=== PATIENT | male | born 1945 | race Caucasian/White ===

== ENCOUNTER 2016-04-08 15:26 | Emergency (ER) | payer OTHER ==
[2016-04-08 20:26] LABS: BASOPHILS 1.8 % (0.0-2.0); EOSINOPHILS 1.8 % (0-7); HEMATOCRIT 46.1 % (42.0-54.0); HEMOGLOBIN 15.5 g/dL (13.5-17.5); IMMATURE GRANULOCYTES 0.4 % (0-5); LYMPHOCYTES 22.6 % (15-50); MCH 29.8 pg (26.0-34.0); MCHC 33.6 g/dL (31.0-37.0); MCV 88.5 fL (80.0-100.0); MEAN PLATELET VOLUME 8.8 fL (7.4-10.4); MONOCYTES 9.3 % (2-11); NEUTROPHILS 64.1 % (40-80); PLATELET COUNT 255 10x3/uL (130-400); RBC 5.21 10x6/uL (4.20-6.10); RDW 15.6 % (11.5-14.5); WBC 10.8 10x3/uL (4.8-10.8)
[2016-04-08 21:01] LABS: ALBUMIN 3.8 g/dL (3.4-5.0); ALKALINE PHOSPHATASE 41 U/L (46-116); ALT (SGPT) 29 U/L (10-68); BILIRUBIN - TOTAL 0.42 mg/dL (0.2-1.3); CALC OSMOLALITY 282 mosm/kg (275-300); CALCIUM 9.1 mg/dL (8.5-10.1); CARBON DIOXIDE 28.9 mmol/L (21.0-32.0); CHLORIDE - SERUM 103 mmol/L (98-107); GLUCOSE 129 mg/dL (74-106); POTASSIUM - SERUM 4.1 mmol/L (3.5-5.1); PROTEIN - SERUM 7.2 g/dL (6.4-8.2); SODIUM 140 mmol/L (136-145); UREA NITROGEN 17 mg/dL (7-18); eGFR NON AFRICAN AMERICAN 78 mL/min (90-120)
[2016-04-08 21:07] LABS: PRO BNP 236 pg/mL (0-125)
== END 2016-04-08 23:59 | disposition home or self-care (01) ==
LOC: D.ER 15:26
PROVIDERS: Physician Assistant Medical
DX: R06.00 Dyspnea, unspecified (principal); J44.1 Chronic obstructive pulmonary disease with (acute) exacerbation; F48.2 Pseudobulbar affect; E11.9 Type 2 diabetes mellitus without complications; N40.0 Benign prostatic hyperplasia without lower urinary tract symptoms

== ENCOUNTER 2019-06-25 15:16 | Inpatient (IN) | payer MEDICARE ==
[~2019-06-25] VITALS: Ht 165.1 cm; Wt 82.6 kg
[2019-06-25] MEDS ORDERED: BAYER CHEWABLE81 MG PO (15:31)
[2019-06-25] MEDS ORDERED: LIPITOR40 MG PO (15:31)
[2019-06-25] MEDS ORDERED: IODOSORB40 GM (15:32)
[2019-06-25] MEDS ORDERED: BUMETANIDE0.5 MG (15:32)
[2019-06-25] MEDS ORDERED: GLUCOTROL XL 1010 MG (15:33)
[2019-06-25] MEDS ORDERED: GABAPENTIN300 MG (15:33)
[2019-06-25] MEDS ORDERED: RANITIDINE HCL150 M1 (15:34)
[2019-06-25] MEDS ORDERED: LISINOPRIL20 MG (15:34)
[2019-06-25] MEDS ORDERED: TOPROL XL50 MG (15:34)
[2019-06-25] MEDS ORDERED: BASAGLAR K100 UNIT/1 (15:34)
[2019-06-25] MEDS ORDERED: FLOMAX0.4 MG PO (15:35)
[2019-06-25 16:46] LABS: HEMOGLOBIN 12.2 g/dL (13.5-17.5); MCH 29.4 pg (26.0-34.0); MCV 89.2 fL (80.0-100.0); MEAN PLATELET VOLUME 7.7 fL (7.4-10.4); PLATELET COUNT 454 10x3/uL (130-400); RBC 4.15 10x6/uL (4.20-6.10); RDW 14.5 % (11.5-14.5); WBC 19.2 10x3/uL (4.8-10.8)
[2019-06-25 16:49] LABS: CALC OSMOLALITY 273 mosm/kg (275-300); CALCIUM 9.1 mg/dL (8.5-10.1); CARBON DIOXIDE 27.6 mmol/L (21.0-32.0); CHLORIDE - SERUM 97 mmol/L (98-107); CREATININE - SERUM 0.9 mg/dL (0.6-1.3); POTASSIUM - SERUM 3.7 mmol/L (3.5-5.1); SODIUM 135 mmol/L (136-145); UREA NITROGEN 18 mg/dL (7-18); eGFR NON AFRICAN AMERICAN 88 mL/min (90-120)
[2019-06-25 16:50] LABS: GLUCOSE 136 mg/dL (74-106)
[2019-06-25 17:06] LABS: ALBUMIN 1.9 g/dL (3.4-5.0); ALKALINE PHOSPHATASE 99 U/L (30-120); ALT (SGPT) 54 U/L (10-68); BILIRUBIN - TOTAL 0.45 mg/dL (0.2-1.3); CKMB 0.9 U/L (0.0-3.6); CREATINE KINASE 62 UL (21-232); MAGNESIUM - SERUM 2.3 mg/dL (1.8-2.4); PRO BNP 710 pg/mL (0-125); PROTEIN - SERUM 8.1 g/dL (6.4-8.2); TROPONIN-I < 0.017 ng/mL (0.000-0.060)
[2019-06-25 17:10] LABS: EOSINOPHILS 1 % (0-7); LYMPHOCYTES 5 % (15-50); MONOCYTES 5 % (2-11); NEUTROPHILS 87 % (40-80); PLATELET ESTIMATE NORMAL
--- NOTE | 2019-06-25 19:07 | NUR ---
ANCEF 1 GRAM COMPLETE.
--- NOTE | 2019-06-25 20:15 | NUR ---
ADMITTED TO FLOOR. BILATERAL LOWER EXTREMETIES, MAINLY FEET HAVE ODOROUS NECROTIC WOUNDS. PATIENT STATES "A WHEEL CHAIR RAN OVER IT." SALINE LOCKED IV TO THE RIGHT FOREARM. PATIENT DENIES PAIN BUT STATES THAT HIS FEET HURT WHEN TOUCHED. CURRENTLY BANDAGED AT THIS TIME. NO WOUND CARE ORDERS. DENIES FURTHER NEEDS. CPOC.
[2019-06-25 20:24] VITALS: BP 138/45
--- NOTE | 2019-06-26 00:30 | NUR ---
ORDERS FULFILLED. MICROWAVE RADIO TECHNICIAN ON FLOOR AND STATES TO DC SCD'S DUE TO BILATERAL FOOT WOUNDS. INFORMED PATIENT THAT THIS NURSE IS NEEDING A URINE SAMPLE. PATIENT IS INCONTINENT OF BOWEL AND BLADDER. URINAL AND URINALYSIS KIT IN ROOM. CPOC.
[2019-06-26 00:56] VITALS: BP 151/79
[2019-06-26 03:00] VITALS: BP 96/74
[2019-06-26 04:00] VITALS: BMI 30.3
--- NOTE | 2019-06-26 04:52 | NUR ---
PATIENT CALLED DESK. WENT TO ROOM TO CHECK ON PATIENT. PATIENT CONFUSED. STATES "WHY AM I HERE?" EXPLAINED TO THAT HE SPOKE TO DOCTOR AND CERTIFIED FRAUD EXAMINER LAST NIGHT. PATIENT STATES "THIS IS BULL SHIT!" EXPLAINED TO PATIENT THAT HE NEEDS MEDICAL CARE AT THIS TIME. PATIENT ASKS FOR PAIN MEDICINE.
--- NOTE | 2019-06-26 04:58 | NUR ---
ADMINISTERED MORPHINE 2 MG PER ORDER
[2019-06-26 05:12] LABS: BASOPHILS 0.4 % (0-2); EOSINOPHILS 0.7 % (0-7); HEMATOCRIT 36.3 % (42.0-54.0); HEMOGLOBIN 11.7 g/dL (13.5-17.5); LYMPHOCYTES 8.6 % (15-50); MCH 29.3 pg (26.0-34.0); MCHC 32.2 g/dL (31.0-37.0); MCV 90.8 fL (80.0-100.0); MEAN PLATELET VOLUME 8.2 fL (7.4-10.4); MONOCYTES 9.1 % (2-11); NEUTROPHILS 80.2 % (40-80); PLATELET COUNT 549 10x3/uL (130-400); RDW 14.7 % (11.5-14.5); WBC 22.3 10x3/uL (4.8-10.8)
[2019-06-26 05:25] LABS: APTT 40.5 SECONDS (22.8-39.4); INR 1.22 (0.85-1.17); PROTIME 15.3 SECONDS (11.6-15.0)
[2019-06-26 05:38] LABS: CALC OSMOLALITY 274 mosm/kg (275-300); CALCIUM 9.4 mg/dL (8.5-10.1); CARBON DIOXIDE 27.8 mmol/L (21.0-32.0); CHLORIDE - SERUM 96 mmol/L (98-107); GLUCOSE 158 mg/dL (74-106); MAGNESIUM - SERUM 2.3 mg/dL (1.8-2.4); PHOSPHOROUS 3.9 mg/dL (2.5-4.9); POTASSIUM - SERUM 3.9 mmol/L (3.5-5.1); SODIUM 135 mmol/L (136-145); UREA NITROGEN 17 mg/dL (7-18); eGFR NON AFRICAN AMERICAN 78 mL/min (90-120)
--- NOTE | 2019-06-26 06:20 | NUR ---
I have reviewed this patient and I concur with the Shift Assessment completed by the Licensed Practical Nurse today this shift.
[2019-06-26 08:00] VITALS: BP 151/55
[2019-06-26 08:45] VITALS: BP 144/73
--- NOTE | 2019-06-26 08:45 | NUR ---
HE IS HARD TO UNDERSTAND BECAUSE OF AN OLD STROKE. HIS O2 SAT IS UP AND DOWN 88%-94%, I PLACED HIM ON 2 LITERS NC 96%. HIS 2 DAUGHTERS HAVE CALLED THIS MORNING. ONE DAUGHTER STATES HE IS SCHEDULED FOR A PRECEDURE WITH DR. MICHELLE FRIDAY. I DID TELL THE BOOKMOBILE DRIVER ABOUT THIS. BILATER DRESSING TO FEET, BLACK AREAS TO BOTH FEET.
[2019-06-26 09:24] VITALS: Ht 165.1 cm; Wt 82.6 kg
[2019-06-26 12:00] VITALS: BP 149/49
[2019-06-26 16:00] VITALS: BP 133/70
--- NOTE | 2019-06-26 17:21 | NUR ---
2 NEW IV STARTED TODAY 20G IN LEFT ARM FOR CTA. 22 G IN RIGHT ARM. HE HAS PULLED TWO IV'S OUT TODAY. I HAVE SPOKE WITH THIS DAUGHTER, KOLBY LIMA, AND THE PATIENT, HE SIGNED AND AGREES WITH SURGERY TOMORROW.
--- NOTE | 2019-06-26 19:15 | NUR ---
PATIENT ALERT WHEN ENTERING THE ROOM. PATIENT TOOK OFF TELE STICKERS AND MONITOR. REAPPLIED AND EXPLAINED TO PATIENT THAT IT IS IMPORTANT TO KEEP TELE ON TO MONITOR HEART. PATIENT STATES "ALRIGHT". PATIENT STATES NAME AND BUT IT IS HARD TO UNDERSTAND. PATIENT GROWS IRRITATED EASILY WHEN ASKED TO REPEAT THINGS. ASKED PATIENT ABOUT UPCOMING SURGERY TOMORROW, PATIENT STATES "YES" HE IS AWARE AND DENIES QUESTIONS. EDUCATED ON NPO STATUS AT [facility] AND [facility] FOR SURGERY TOMORROW. PATIENT STATES "OKAY". PATIENT FAMILY MEMBER CALLED ON PHONE. PATIENT SPEAKING WITH FAMILY MEMBER WHEN CONTINUING ASSESSMENT. 22G IV THAT IS INFUSING NS @ KVO RATE. 20G IN THE RIGHT FOREARM THAT IS SALINE LOCKED. BED ALARM ON. PATIENT REFUSES TO KEEP CLOTHING OR SHEETS ON. CALL LIGHT CLOSE TO PATIENT. CPOC.
--- NOTE | 2019-06-26 21:29 | NUR ---
NAIN OZUNA ON FLOOR. STATES TO PREOP PATIENT AT NORMAL "MORNING MEDS" TIME. THIS NURSE STATED, "THAT'S ABOUT ." SULMA STATED THAT WAS FINE AND TO GO AHEAD AND DO IT AROUND THAT TIME. BRE HICKS, CHARGE NURSE PRESENT FOR CONVERSATION.
[2019-06-26 21:40] LABS: BILIRUBIN NEGATIVE (NEGATIVE); GLUCOSE NEGATIVE (NEGATIVE); KETONE NEGATIVE (NEGATIVE); NITRITE NEGATIVE (NEGATIVE); SPECIFIC GRAVITY 1.015 (1.005-1.020); UROBILINOGEN NORMAL (NORMAL)
[2019-06-27] VITALS (11 sets, daily range): BP systolic 147–157; BP diastolic 49–62
--- NOTE | 2019-06-27 03:54 | NUR ---
EKG PERFORMED. SPENT SEVERAL MINUTES WITH PATIENT COACHING TO TRY TO BE STILL BUT PATIENT HAS MUSCLE SEVERE MUSCLE SPASMS.
--- NOTE | 2019-06-27 04:00 | NUR ---
HIBBA CLEANSE COMPLETED. URINE OBTAINED AND SENT TO LAB EARLIER IN SHIFT FOR REFLEX AND CULTURES. EKG OBTAINED, SEE PRIOR NOTE.
--- NOTE | 2019-06-27 05:20 | NUR ---
PATIENT CONTINUALLY TAKING OFF GOWN. WOULD NOT ALLOW NURSE TO TAKE OFF BANDAGES ON BILATERAL LOWER EXTREMETIES.
--- NOTE | 2019-06-27 06:23 | NUR ---
PHARMACY NOT HERE TO VERIFY ORDERS. WAITING FOR MEDICATIONS TO BE VERIFIED SO PATIENT CAN BE PREOPED.
--- NOTE | 2019-06-27 06:33 | NUR ---
PATIENT AND DAUGHTER CALLED TO ASK IF PATIENT HAS CELL PHONE AND CAN FACETIME. PATIENT HAS BEEN SLEEPING EVERY TIME FAMILY MEMBERS HAVE CALLED. THIS NURSE WOULD GO ASK PATIENT IF HE WOULD LIKE TO TALK TO FAMILY AND HE WOULD ACKNOWLEDGE THIS NURSE AND THEN WAVE HIS HAND OFF AND CLOSE HIS EYES AND GO BACK TO SLEEP. SPOKE WITH FAMILY THAT PATIENT IS STILL SLEEPING AT THIS TIME.
[2019-06-27 06:42] LABS: HEMATOCRIT 35.2 % (42.0-54.0); HEMOGLOBIN 11.4 g/dL (13.5-17.5); MCH 29.3 pg (26.0-34.0); MCHC 32.4 g/dL (31.0-37.0); MCV 90.5 fL (80.0-100.0); MEAN PLATELET VOLUME 8.3 fL (7.4-10.4); PLATELET COUNT 511 10x3/uL (130-400); RBC 3.89 10x6/uL (4.20-6.10); RDW 14.7 % (11.5-14.5); WBC 22.9 10x3/uL (4.8-10.8)
[2019-06-27 07:06] LABS: CALC OSMOLALITY 280 mosm/kg (275-300); CALCIUM 9.2 mg/dL (8.5-10.1); CARBON DIOXIDE 25.7 mmol/L (21.0-32.0); CHLORIDE - SERUM 98 mmol/L (98-107); GLUCOSE 203 mg/dL (74-106); MAGNESIUM - SERUM 2.3 mg/dL (1.8-2.4); PHOSPHOROUS 3.7 mg/dL (2.5-4.9); POTASSIUM - SERUM 3.8 mmol/L (3.5-5.1); SODIUM 136 mmol/L (136-145); UREA NITROGEN 22 mg/dL (7-18); eGFR NON AFRICAN AMERICAN 78 mL/min (90-120)
[2019-06-27 07:13] LABS: LYMPHOCYTES 12 % (15-50); MONOCYTES 1 % (2-11); NEUTROPHILS 87 % (40-80); PLATELET ESTIMATE INCREASED
--- NOTE | 2019-06-27 08:31 | NUR ---
THE PM SHIFT PRE MEDICATED HIM, SHE IS SLEEPY THIS MORNING. AROUSES TO VOICE. HE IS WEARING 2 L NC OXYGEN.
--- NOTE | 2019-06-27 09:09 | NUR ---
GONE TO OR.
--- NOTE | 2019-06-27 13:08 | NUR ---
BACK FROM SURGERY, MALVIN AKA WITH WOUND VAC TO BOTH STUMPS IN PLACE. HE IS SLEEPY, BUT AROUSES TO MY VOICE.
--- NOTE | 2019-06-27 19:22 | NUR ---
PATIENT RESTING IN BED WITH EYES CLOSED AND NO S/S OF DISTRESS. RESP EVEN AND UNLABORED. BED IN LOWEST POSITION AND CALL LIGHT WITHIN REACH. WILL CONTINUE TO MONITOR.
[2019-06-28 01:01] VITALS: BP 140/63
--- NOTE | 2019-06-28 01:10 | NUR ---
PATIENT VOIDED 350 ML
[2019-06-28 05:16] VITALS: BP 146/53
[2019-06-28 05:21] LABS: BASOPHILS 0.4 % (0-2); EOSINOPHILS 1.1 % (0-7); HEMATOCRIT 34.3 % (42.0-54.0); IMMATURE GRANULOCYTES 1.1 % (0-5); LYMPHOCYTES 8.4 % (15-50); MCH 29.2 pg (26.0-34.0); MCHC 32.1 g/dL (31.0-37.0); MEAN PLATELET VOLUME 8.4 fL (7.4-10.4); MONOCYTES 9.7 % (2-11); NEUTROPHILS 79.3 % (40-80); PLATELET COUNT 468 10x3/uL (130-400); RBC 3.77 10x6/uL (4.20-6.10)
[2019-06-28 05:22] LABS: WBC 16.1 10x3/uL (4.8-10.8)
[2019-06-28 05:26] LABS: MAGNESIUM - SERUM 2.4 mg/dL (1.8-2.4); PHOSPHOROUS 3.3 mg/dL (2.5-4.9)
[2019-06-28 07:19] VITALS: BP 156/63
--- NOTE | 2019-06-28 07:50 | OP ---
PATIENT NAME: CHIQUI CHEN MEDICAL RECORD: [id number] :45 LOCATION:D.MS [id number] ADMISSION DATE:06/25/19 SURGEON: PANKAJ FORREST DO DATE OF OPERATION: 06/27/2019 PROCEDURE PERFORMED: Bilateral lower extremity above-knee amputations. PREOPERATIVE DIAGNOSIS: Wet gangrene of bilateral lower extremities. POSTOPERATIVE DIAGNOSIS: Wet gangrene of bilateral lower extremities. INDICATIONS: Mr. Chen is a 74-year-old diabetic male who also smokes, presented to the hospital on the . I was consulted yesterday on the for evaluation of his lower extremities, had been getting home health and noticed some open wounds on his lower extremities. When I got to see him, both of his feet were completely necrotic. On his right side, he had exposed tibia shaft through an wound that was necrotic around that. On the left, he had a large wound, probably 4 x 5 cm on the posterior and lateral aspect with an ulcer to the bone there as well and no pulses. He had a CTA, which showed very limited blood flow to the lower extremity in the popliteal artery. We did have some vessel runoff, but due to the fact he had exposed bone on both of his lower extremities and he had a white count as well as 22,000, almost 23,000 this morning, he had infection, wet gangrene in the both lower extremities. I talked to him and his family, informed that we need to do above-knee amputations. We tried to do below knee once I got in there, but we will likely do above-knee and that is what we did. I informed him that would be the best option, we are trying to save his life that he could turn septic really quickly due to the infections and that the infection was in the bone that we will need to take all of his lower extremity except for we just did the above-knee amputation. The patient was informed of the risks including continued infection, bleeding, damage to nerves and vessels, continued pain, phantom pain, blood loss, blood clots, and even and he signed the consent. SURGEON: Pankaj Forrest DO DESCRIPTION OF PROCEDURE: The patient was taken to the operative suite, laid in supine position, given general anesthetic and intubated. He was given vancomycin and Zosyn on the floor and he was given 2 grams of Ancef prior to starting the surgery. The exposed bones were covered up at that point with a sterile stockinette and then the right lower extremity was prepped in a sterile fashion first. A timeout was performed, everyone was in agreement of the correct side, site, patient and procedure. We then began by inflating the tourniquet and once tourniquet was inflated, did a fishmouth incision. Careful dissection was made down through all the compartments and exposing the femur. These nerves were cut with traction on them and then the femur was cut. I then encountered the large vessels and tied them off the artery and vein and tied them off with 0 silk ties, using 2 ties on wound and coagulating the ends of them with the Aquamantys. Any bleeding was coagulated with Aquamantys at that time. I then put drill holes in the amputated site. The leg was removed on the posterior femur and using a Bryn-Charlie stitch, I stitched the quad tendon down covering the stump. I then debulked any of the soft tissue in order to close. I was assisted with closing by Karan Jaimes, certified surgical assistant professor of dietetics using a #1 Vicryl and closed the fascia, bringing the posterior flap up nicely and then 2-0 Vicryl in inverted interrupted fashion on the skin and then 0 Prolene in a horizontal mattress fashion on the skin. We then put a Prevena OPERATIVE REPORT [id number] CHIQUI CHEN plus VAC on the right. The tourniquet was let down prior to this at 24 minutes and was up at 350 mmHg. Any bleeding was coagulated prior to closing. We then proceeded with the left and it was prepped and draped in sterile fashion similar to the right one and the same process was repeated. The skin was cut with a knife and a fishmouth incision. Careful dissection was made down through each compartment and coagulated any bleeders. A tourniquet was inflated prior to this to 350 mmHg. I then cut the femur and tied off the vessels and did traction on each of the nerves and cut them, so they retract out proximally. The vessels were tied and then coagulated with the Aquamantys and drill holes were put in the femur and the quad was brought down over that to pad the stump and then debrided any soft tissue and brought the flap up the fascia matching it up with #1 Vicryl in a kmvrlr-fj-sowid and simple fashion. This was assisted by Karan Jaimes, certified surgical assistant professor of dietetics as well and closed the skin with 2-0 Vicryl in inverted interrupted fashion, 0 Prolene in horizontal mattress fashion, and then Prevena plus VAC placed on the stump site. The stump sites were holding suction very well. We then awakened and taken to recovery in stable condition. BLOOD LOSS: Approximately 100 mL. COMPLICATIONS: None. TRANSINT:[id number] Voice Confirmation ID: [id number] DOCUMENT ID: [id number] PANKAJ FORREST DO at 0750 CC: [id number] DICTATION DATE: 06/27/19 1228 OCCUPATIONAL PSYCHOLOGIST: 06/27/19 1530 ADM IN [place] [id number] [place] [address]
--- NOTE | 2019-06-28 08:00 | NUR ---
HE IS ALERT, CALM, EATING BREAKFAST. HE ONLY HAS PAIN WHEN HE MOVES. PRN FOR PAIN GIVEN. BILATERAL WOUND VAC DRESSING ARE INTACT, MACHINE IS WORKING. FAMILY HAS CALLED ME, WELL THE PATIENT WHEN I WAS IN HIS ROOM.
--- NOTE | 2019-06-28 09:57 | EC ---
PATIENT:CHIQUI CHEN DATE OF SERVICE: 06/25/19 SEX: M MEDICAL RECORD: [id number] DATE OF : 45 LOCATION:D.[facility] AGE OF PATIENT: 74 ADMISSION DATE: 06/25/19 REFERRING PHYSICIAN: INTERPRETING PHYSICIAN: NICOLLE GOMEZ MD ECHOCARDIOGRAM REPORT ECHO CHARGES 4 ECHO COMPLETE Date: 06/26/19 CLINICAL DIAGNOSIS: ELEVATED PRO-BNP/SOB ECHOCARDIOGRAPHIC MEASUREMENTS (adult normal given) AC root (d.<3.7cm) 3.0 cm LV Septum d (<1.2 cm> 1.7 cm Valve Excursion 0.9 cm LV Septum (systole) 2.3 cm Left Atria (s.<4.0cm> 4.2 cm LVPW d(<1.2cm) 1.6 cm RV (d.<2.3cm) 3.0 cm LVPW (sytole) 2.6 cm LV diastole(<5.6CM) 3.9 cm MV E-F(>70mm/sec) cm LV systole 1.4 cm LVOT Diameter 2.0 cm MV exc.(>10mm) cm Est.ejection fraction (50-75%) % DOPPLER: LVIT cm/sec A 171 cm/sec E 104 cm/sec LA cm/sec RVSP 27.0 mmHg LVOT 168 cm/sec AOP1/2T m/s Asc. Ao 236 cm/sec RVOT 102 cm/sec RA cm/sec PA 166 cm/sec AV Gradient Peak 22.3 mmHg AV Mean 11.4 mmHg AV Area 1.9 cm MV Gradient Peak 14.0 mmHg MV Mean 4.1 mmHg MV Area cm COMMENTS: Braddisher: Blanka GROSSOE Hvac R Tech: 3 Dr. Vallecillo TAPE# PACS Pericardial Effusion N DATE OF SERVICE: Adequate 2D, color flow imaging, spectral Doppler, and M-Mode. LVH is present. LV internal dimensions are normal. Wall motion is normal. EF is greater than or equal to 55%. Aortic valve is sclerotic without significant stenosis by Doppler interrogation. Left atrium is mildly dilated at 4.2 cm. Mitral valve shows no prolapse. Trace MR. Right-sided chambers are grossly normal. Trace TR. ECHOCARDIOGRAM REPORT [id number] CHIQUI CHEN TRANSINT:[id number] Voice Confirmation ID: [id number] DOCUMENT ID: [id number] NICOLLE GOMEZ MD at 0957 CC: [id number] DICTATION DATE: 06/27/19954 FLEET SALESPERSON: 06/27/19 1310 ADM IN [place] [id number] [place] [id number]
--- NOTE | 2019-06-28 12:14 | NUR ---
Rehab Prescreening Consult received and the chart has been reviewed. He is POD# 1 Bilateral AKA. He is a good rehab candidate, but has not started therapy yet. Rehab will follow his progress with therapy and plan to admit when appropriate. Kristin Smith RN Clinical Liaison, Rehab
[2019-06-28 12:30] VITALS: BP 152/62
--- NOTE | 2019-06-28 16:41 | NUR ---
IN THE ROOM TO CHECK HIS BLOOD SUGAR AND FOUND THAT HE HAS PULLED THE IV OUT OF HIS RIGHT ARM.
[2019-06-28 17:03] VITALS: BP 139/42
--- NOTE | 2019-06-28 19:45 | NUR ---
PT SITTING UP IN BED WITHOUT DISTRESS. ORIENTED TO SELF AND PLACE. BILAT AKA DRESSING AND WOUND VAC CDI. IV LEFT FA INFUSING 1/2NS @ 50. O2 2L/NC. PT PULLED TELE MONITOR OFF. PLACED BACK ON PT AND EXPLAINED WHY HE HAD TO WEAR IT, VERBALIZED UNDERSTANDING. PT STATES PAIN 4/10 AT THIS TIME. SPOKE WITH DAUGHTER OVER PHONE AND UPDATE GIVEN. WILL CTM
[2019-06-28 20:00] VITALS: BP 132/48
--- NOTE | 2019-06-28 21:00 | NUR ---
FSBS 193, 2 UNITS INSULIN GIVEN PER SS. PT TOOK MEDS WITHOUT DIFFICULTY. PT VOIDED IN BED WHILE ATTEMPTING TO USE URINAL, LINENS CHANGED AT THIS TIME. PT STATES PAIN IN LEGS 5/10, OXY GIVEN ORDERED. STATES THEY HURT WHEN HE MOVES. DENIES OTHER NEEDS. CL IN REACH, WILL CTM
--- NOTE | 2019-06-28 23:40 | NUR ---
IV LEFT FA INFILTRATED. REMOVED WITH CATHETER INTACT. RESITED 20G IV RIGHT HAND X1 ATTEMPT
[2019-06-29] VITALS: BP 110/56
[2019-06-29 04:00] VITALS: BP 140/80
[2019-06-29 04:30] LABS: BASOPHILS 0.2 % (0-2); EOSINOPHILS 1.6 % (0-7); HEMATOCRIT 31.8 % (42.0-54.0); HEMOGLOBIN 9.9 g/dL (13.5-17.5); IMMATURE GRANULOCYTES 2.2 % (0-5); LYMPHOCYTES 12.3 % (15-50); MCH 28.4 pg (26.0-34.0); MCHC 31.1 g/dL (31.0-37.0); MCV 91.1 fL (80.0-100.0); MEAN PLATELET VOLUME 8.1 fL (7.4-10.4); NEUTROPHILS 72.7 % (40-80); PLATELET COUNT 503 10x3/uL (130-400); RBC 3.49 10x6/uL (4.20-6.10); RDW 14.8 % (11.5-14.5); WBC 14.7 10x3/uL (4.8-10.8)
[2019-06-29 04:46] LABS: CALC OSMOLALITY 270 mosm/kg (275-300); CALCIUM 8.1 mg/dL (8.5-10.1); CARBON DIOXIDE 26.2 mmol/L (21.0-32.0); CHLORIDE - SERUM 97 mmol/L (98-107); CREATININE - SERUM 0.8 mg/dL (0.6-1.3); GLUCOSE 194 mg/dL (74-106); MAGNESIUM - SERUM 2.3 mg/dL (1.8-2.4); PHOSPHOROUS 2.6 mg/dL (2.5-4.9); POTASSIUM - SERUM 3.5 mmol/L (3.5-5.1); SODIUM 133 mmol/L (136-145); UREA NITROGEN 12 mg/dL (7-18); eGFR NON AFRICAN AMERICAN > 90 mL/min (90-120)
[2019-06-29 07:54] VITALS: BP 162/91
--- NOTE | 2019-06-29 08:14 | NUR ---
AWAKE AND ALERT. ORIENTED X3. LUNGS ARE CLEAR BILATERALLY, NO COUGH NOTED. SKIN IS INTACT WITHOUT REDNESS EXCEPT INCISIONS TO BILATERAL AKA WHICH ARE CLEAN AND DRY WITH WOUND VAC IN PLACE TO BOTH. IV TO RIGHT HAND IS PATENT WITHOUT REDNESS AT INSERTION SITE. INCONTINENT OF URINE. SKIN CARE AND LINEN CHANGE PER STAFF. REPORTS PAIN WITH MOVEMENT BUT CALMS DOWN WHEN STILL. WILL MONITOR.
--- NOTE | 2019-06-29 10:00 | NUR ---
ATE MOST OF BREAKFAST WITH SET UP ASSIST ONLY. TOOK AM MEDS WITHOUT DIFFICULTY. CONFUSED AT THIS TIME, PULLED IV OUT WITH CATHETER INTACT. CONTINUES TO PULL TELEMETRY OFF. IV RESITED TO RIGHT FOREARM AFTER ONE ATTEMPT WITH 20G. TOLERATED WELL.
--- NOTE | 2019-06-29 11:00 | NUR ---
RESTING QUIETLY IN BED. CONTINUES CONFUSED BUT OK WITH STAYING IN BED AT THIS TIME. WILL MONITOR.
--- NOTE | 2019-06-29 12:00 | NUR ---
FSBS 246. GIVEN 4 UNITS HUMALOG SUBQ PER SS. TOLERATED WELL. CONTINUES CONFUSED BUT ANSWERS SOME QUESTIONS APPROPRIATELY. WILL CONTINUE TO MONITOR.
[2019-06-29 12:04] VITALS: BP 150/53
--- NOTE | 2019-06-29 14:53 | MORECARE ---
CASE MANAGEMENT DISCHARGE SUMMARY PATIENT: CHIQUI CHEN UNIT: [id number] ADM DATE: 06/25/19 AGE: 74 : 45 SEX: M ROOM/BED: D.2215 AUTHOR: MARICARMEN CH PHYSICIAN: REFERRING PHYSICIAN: MENG MANDUJANO MD DATE OF SERVICE: 06/29/19 Discharge Plan Patient Name: [facility]IQUI CHEN [facility] [facility] 1945 Planned Disposition: Anticipated Discharge Date: Discharge Date: Expected LOS: Initial Reviewer: [email or web address] Initial Review Date: 06/25/2019 Generated: 06/29/19 3:52 pm Comments DCP- Discharge Planning Updated by [email or web address]: Ирина Carlisle on 06/29/19 1:[address] [facility] with [facility] called to check in with patient. She said that if he needed or wanted the [place] inpatient rehab that I would need to touch base with the KNOWLEDGE MANAGEMENT ADVISOR over that department. Her name is Beverley Steward & her number is [phone]. Patient Name: CHIQUI CHEN Page 08703 at 1453 All edits/amendments must be made on the electronic document DICTATION DATE: 06/29/191451 SYSTEMATIC THEOLOGY PROFESSOR: IRA 06/29/191451 RPT#: [id number] DC DATE: STATUS: ADM IN [facility] [address] [place] [address] END OF REPORT
--- NOTE | 2019-06-29 15:35 | NUR ---
OT NOTE: PT EXHIBITED LESS DIFFICULTY WITH SITTING UP RATHING THAN SIDE ROLLING. PT REQUIRED MOD A WITH SIDE ROLLING. PT REQUIRED MIN A WITH SITTING UP. PT COMPLETED UE AROM WITH BED MOB TASKS. [phone] THANK YOU,SEYMOUR TEIXEIRA
--- NOTE | 2019-06-29 15:45 | NUR ---
OT NOTE: AMEND TO PREVIOUS NOTE DATED 06/29/2019. SESSION TIME: 105-129 THANK YOU,SEYMOUR TEIXEIRA
--- NOTE | 2019-06-29 16:14 | MORECARE ---
CASE MANAGEMENT DISCHARGE SUMMARY PATIENT: CHIQUI CHEN UNIT: [id number] ADM DATE: 06/25/19 AGE: 74 : 45 SEX: M ROOM/BED: D.2215 AUTHOR: MARICARMEN CH PHYSICIAN: REFERRING PHYSICIAN: MENG MANDUJANO MD DATE OF SERVICE: 06/29/19 Discharge Plan Patient Name: CHIQUI CHEN [facility] [facility] 1945 Planned Disposition: Inpatient Rehab Facility Anticipated Discharge Date: 06/30/19 Discharge Date: Expected LOS: 5 Initial Reviewer: [email or web address] Initial Review Date: 06/29/2019 Generated: 06/29/19 5:14 pm Comments DCP- Discharge Planning Updated by [email or web address]: Ирина Carlisle on 06/29/19 1:[address] [facility] Jeffrey with the [facility] called to check in with patient. She said that if he needed or wanted the [place] inpatient rehab that I would need to touch base with the CARD SETTER over that department. Her name is Beverley Steward & her number is [phone]. DCPIA - Discharge Planning Initial Assessment Updated by [email or web address]: Zenaida Lozano on 06/29/19 4:13 pm * Is the patient Alert and Oriented? No * How many steps to enter\exit or inside your home? Ramp * PCP [facility] nurse Caroline * [facility] on [address] * Preadmission Environment Home with Family * ADLs Partial Dependent * Partial ADLs (Assistance needed) Ambulation Bathing Dressing Toileting Transfers * Equipment Elevated [place] Seat Glucometer [facility] Bed Power Chair or Electric Scooter Shower Chair Mikeye Last DP export: 06/29/19 1:53 p Patient Name: CHIQUI CHEN Page 14785 at 1614 All edits/amendments must be made on the electronic document DICTATION DATE: 06/29/191613 PERIANESTHESIA MANAGER: IRA 06/29/19 1614 RPT#: [id number] DC DATE: STATUS: ADM IN [place] [address] [facility] [place] [address] END OF REPORT
--- NOTE | 2019-06-29 16:30 | MORECARE ---
CASE MANAGEMENT DISCHARGE SUMMARY PATIENT: CHIQUI CHEN UNIT: [id number] ADM DATE: 06/25/19 AGE: 74 : 45 SEX: M ROOM/BED: D.2215 AUTHOR: JING,DOC PHYSICIAN: REFERRING PHYSICIAN: MENG MANDUJANO MD DATE OF SERVICE: 06/29/19 Discharge Plan Patient Name: CHIQUI CHEN [facility]:[place] : 1945 Planned Disposition: Inpatient Rehab Facility Anticipated Discharge Date: 06/30/19 Discharge Date: Expected LOS: 5 Initial Reviewer: [email or web address] Initial Review Date: 06/29/2019 Generated: 06/29/19 5:29 pm Comments DCP- Discharge Planning Updated by [email or web address]: Ирина Carlisle on 06/29/19 1:[address] [facility]iet Jeffrey with the [facility] called to check in with patient. She said that if he needed or wanted the [place] inpatient rehab that I would need to touch base with the PRODUCT LISTER over that department. Her name is Beverley Steward & her number is [phone]. DCPIA - Discharge Planning Initial Assessment Updated by [email or web address]: Zenaida Lozano on 06/29/19 4:27 pm * Is the patient Alert and Oriented? No * How many steps to enter\exit or inside your home? Ramp * PCP [place] nurse Caroline * [facility] [address] * Preadmission Environment Home with Family * ADLs Partial Dependent * Partial ADLs (Assistance needed) Ambulation Bathing Dressing Toileting Transfers * Equipment Elevated [place] Seat Glucometer Grab [facility] Hospital Bed Power Chair or Electric Scooter Shower Chair Trapeze * Other Equipment Wheel Chair Van, Low Air loss Mattress for Hospital Bed, Automatic BP machine, Was in the process of obtaining Daniel Lift from [place] prior to hospitalization. * List name and contact numbers for known caregivers / representatives who currently or will assist patient after discharge: Alana Chen, daughter, Caroline Chen, Spouse, * Verbal permission to speak to the caregivers and representatives has been obtained from the patient. N/A * Community resources currently utilized Home Health * Please name any agencies selected above. [place] [facility]: Nurse Linda Edmonds [phone] * Additional services required to return to the preadmission environment? Yes * Can the patient safely return to the preadmission environment? Yes * Has this patient been hospitalized within the prior 30 days at any hospital? No Last DP export: 06/29/19 3:14 p Patient Name: CHIQUI CHEN Page 27799 at 1630 All edits/amendments must be made on the electronic document DICTATION DATE: 06/29/191628 FINE ARTS CHAIR: IRA 06/29/191628 RPT#: [id number] DC DATE: STATUS: ADM IN [facility] [address] [place] [address] END OF REPORT
[2019-06-29 16:48] VITALS: BP 152/73
--- NOTE | 2019-06-29 16:51 | MORECARE ---
CASE MANAGEMENT DISCHARGE SUMMARY PATIENT: CHIQUI CHEN UNIT: [id number] ADM DATE: 06/25/19 AGE: 74 : 45 SEX: M ROOM/BED: D.2215 AUTHOR: JING,DOC PHYSICIAN: REFERRING PHYSICIAN: MENG MANDUJANO MD DATE OF SERVICE: 06/29/19 Discharge Plan Patient Name: CHIQUI CHEN Facility: [facility]:[place] : 1945 Planned Disposition: Inpatient Rehab Facility Anticipated Discharge Date: 06/30/19 Discharge Date: Expected LOS: 5 Initial Reviewer: [email or web address] Initial Review Date: 06/29/2019 Generated: 06/29/19 5:51 pm Comments DCP- Discharge Planning Updated by [email or web address]: Zenaida Lozano on 06/29/19 3:[address] Patient Name: CHIQUI CHEN Admission Status: ER Accout number: [id number] Admission Date: 06-25-2019 : 1945 Admission Diagnosis:SHORTNESS OF BREATH Attending: NAZIA, Current LOS: 4 Anticipated DC Date: 06-30-2019 Planned Disposition: Inpatient Rehab Facility Primary Insurance: MEDICARE A & B Discharge Planning Comments: CM attempted to meet with patient to discuss discharge planning/needs. Patient confused and CM had great difficulty understanding patient's very mumbled speech. CM called and spoke with both patient's daughter, Alana Stephens [phone], and , Caroline Chen [phone], about discharge planning / needs. Both state they want the patient to go to [facility]. But he has Medicare part A only, they would be financially responsible for the Rehab Physician's part of the bill ($184 for admission, $92 for discharge, and $94 for 3xweekly visits). States they want CM to call VA to get answers to their questions: Will the VA pay for his rehab at [facility]? If they won't where is the [facility] rehab that they would send him to and when would they admit him. When CM gets these questions answered, CM to call daughter and back and they will finalize decision about which rehab. Right of Choice completed with and daughter via telephone and copy sent to via certified mail. Daughter informed CM that patient had home health with the [place] prior to hospitalization. [facility] their Home Health nurse Linda, , was working on getting them a Daniel Lift. [facility] they have a Wheel Chair accessible van, but it is the kind that the patient has to be transferred our of his wheelchair into the seat of the van. [facility] they are trying to get a different WC accessible van that will allow him to ride in his wheelchair. [facility] patient has been in wheelchair for the last year. Started needing assistance with transfers about a month ago and started needing help with dressing last week. States previously he was independent with everything. [facility] patient still sets up all his medications independently, takes them correctly without forgetting or reminders. States the home environment is safe. Has several pieces of equipment-listed in assessment. CM called [place] PORTER HEAD, Beverley Steward at [phone] and left message requesting she call CM about VA rehab benefits. CM will continue to follow and assist as needed with discharge planning / needs. Manager Auto: Zenaida Lozano DCP- Discharge Planning Updated by [email or web address]: Ирина Carlisle on 06/29/19 1:[address] Yuliet Jeffrey with the VA called to check in with patient. She said that if he needed or wanted the [place] inpatient rehab that I would need to touch base with the PORTER HEAD over that department. Her name is Beverley Steward & her number is [phone]. DCPIA - Discharge Planning Initial Assessment Updated by [email or web address]: Zenaida Lozano on 06/29/19 4:27 pm * Is the patient Alert and Oriented? No * How many steps to enter\exit or inside your home? Ramp * PCP [facility] nurse [facility] * [facility] [address] [place] * Preadmission Environment Home with Family * ADLs Partial Dependent * Partial ADLs (Assistance needed) Ambulation Bathing Dressing Toileting Transfers * Equipment Elevated [place] Seat Glucometer Grab Bars Hospital Bed Power Chair or Electric Scooter Shower Chair Trapeze * Other Equipment Wheel Chair Van, Low Air loss Mattress for Hospital Bed, Automatic BP machine, Was in the process of obtaining Daniel Lift from [place] prior to hospitalization. * List name and contact numbers for known caregivers / representatives who currently or will assist patient after discharge: Alana Chen, daughter, Caroline Chen, Spouse, * Verbal permission to speak to the caregivers and representatives has been obtained from the patient. N/A * Community resources currently utilized Home Health * Please name any agencies selected above. [facility]: Nurse Linda Edmonds [phone] * Additional services required to return to the preadmission environment? Yes * Can the patient safely return to the preadmission environment? Yes * Has this patient been hospitalized within the prior 30 days at any hospital? No Last DP export: 06/29/19 3:30 p Patient Name: CHIQUI CHEN Page 32567 at 1651 All edits/amendments must be made on the electronic document DICTATION DATE: 06/29/191650 MANAGER RESEARCH AND DEVELOPMENT: IRA 06/29/191650 RPT#: [id number] SC DATE: STATUS: ADM IN [facility] [address] [place] [address] END OF REPORT
--- NOTE | 2019-06-29 17:00 | NUR ---
FSBS 205. GIVEN 8 UNITS HUMALOG SUBQ PER SS. DENIES NEEDS. NO CHANGES NOTED.
--- NOTE | 2019-06-29 21:00 | NUR ---
PT SITTING UP IN BED, ORIENTED TO SELF AND PLACE. PT SEEMS AGITATED AND WANTING TO GET UP TO CHAIR. TOLD PT WE COULD NOT GET HIM UP AT THIS TIME. PT UPSET, SPEECH GARBLED AND HARD TO UNDERSTAND HIM, MORE SO WHEN HE IS FRUSTRATED. PT ATTEMPTED TO USE URINAL AND SPILLED IT IN BED. CHANGED LINENS, PT TOLERATED WELL. PT KEEPS PULLING OFF TELE MONITOR, VERY RESTLESS. WHEN ASKED IF HURTING HE STATES YES BUT DOES NOT STATE HOW MUCH ON SCALE 1-10. GAVE PT HS MEDS, PT TOOK BUT DID HAVE SOME DIFFICULTY GETTING PILLS DOWN. TRIED TO CHEW THEM OR WAS POCKETING THEM. HAD TO ENCOURAGE PT MULTIPLE TIMES TO SIP WATER AND SWALLOW. GAVE PT OXY FOR PAIN. WILL REASSESS. FSBS 139, NO COVERAGE NEEDED. CL IN REACH, WILL CTM
[2019-06-29 21:44] VITALS: BP 174/67
--- NOTE | 2019-06-29 23:30 | NUR ---
PT SLEEPING COMFORTABLY. WHEN AWAKE HE IS CONFUSED BUT PLEASANT. IS NOT PULLING AT IV OR TELE MONITOR ANYMORE. WILL CTM
[2019-06-30 00:50] VITALS: BP 166/61
[2019-06-30 05:01] LABS: BASOPHILS 0.3 % (0-2); EOSINOPHILS 2.1 % (0-7); HEMATOCRIT 34.2 % (42.0-54.0); HEMOGLOBIN 10.7 g/dL (13.5-17.5); IMMATURE GRANULOCYTES 2.1 % (0-5); LYMPHOCYTES 12.1 % (15-50); MCH 28.5 pg (26.0-34.0); MCHC 31.3 g/dL (31.0-37.0); MEAN PLATELET VOLUME 8.2 fL (7.4-10.4); MONOCYTES 9.7 % (2-11); NEUTROPHILS 73.7 % (40-80); PLATELET COUNT 533 10x3/uL (130-400); RBC 3.76 10x6/uL (4.20-6.10); RDW 14.7 % (11.5-14.5); WBC 15.5 10x3/uL (4.8-10.8)
[2019-06-30 05:05] LABS: CALC OSMOLALITY 269 mosm/kg (275-300); CALCIUM 8.3 mg/dL (8.5-10.1); CARBON DIOXIDE 28.5 mmol/L (21.0-32.0); CHLORIDE - SERUM 99 mmol/L (98-107); CREATININE - SERUM 0.7 mg/dL (0.6-1.3); GLUCOSE 158 mg/dL (74-106); POTASSIUM - SERUM 3.3 mmol/L (3.5-5.1); SODIUM 134 mmol/L (136-145); UREA NITROGEN 10 mg/dL (7-18); eGFR NON AFRICAN AMERICAN > 90 mL/min (90-120)
[2019-06-30 06:55] VITALS: BP 158/68
--- NOTE | 2019-06-30 09:04 | MORECARE ---
CASE MANAGEMENT DISCHARGE SUMMARY PATIENT: CHIQUI CHEN UNIT: [id number] ADM DATE: 06/25/19 AGE: 74 : 45 SEX: M ROOM/BED: D.2215 AUTHOR: MARICARMEN CH PHYSICIAN: REFERRING PHYSICIAN: MENG MANDUJANO MD DATE OF SERVICE: 06/30/19 Discharge Plan Patient Name: CHIQUI CHEN Facility: [facility]:[place] : 1945 Planned Disposition: Inpatient Rehab Facility Anticipated Discharge Date: 06/30/19 Discharge Date: Expected LOS: 5 Initial Reviewer: [email or web address] Initial Review Date: 06/29/2019 Generated: 06/30/19 10:03 am Comments DCP- Discharge Planning Updated by [email or web address]: Ирина Carlisle on 06/30/19 7:[address] HERMANN WITH THE VA RETURNED THE CALL FROM THE MESSAGE THAT WAS LEFT YESTERDAY. I ASKED THE QUESTIONS THAT THE FAMILY WANTED TO KNOW. THE [place] IS NOT ACCEPTING ANY PATIENTS TO THE INPATIENT REHAB DUE TO THE COVID-19 THE VA WILL NOT COVER ANY COST THAT IS NOT A CONTRACTED VA SITE ( IF THEY CHOSE TO [facility]) SHE SAID THAT THEY WOULD COVER SKILLED REHAB AT A CONTRACTED SITE. SHE THINKS THAT HE WILL NEED MORE THERAPY [facility] PROVID[facility] SHE ASKED THAT CLINICALS BE FAXED TO HER AT [phone] I WILL FAX CLINICALS TO HER DCP- Discharge Planning Updated by [email or web address]: Zenaida Blake on 06/29/19 3:[address] Patient Name: CHIQUI CHEN Admission Status: ER Accout number: [id number] Admission Date: 06-25-2019 : 1945 Admission Diagnosis:SHORTNESS OF BREATH Attending: NAZIA, Current LOS: 4 Anticipated DC Date: 06-30-2019 Planned Disposition: Inpatient Rehab Facility Primary Insurance: MEDICARE A & B Discharge Planning Comments: CM attempted to meet with patient to discuss discharge planning/needs. Patient confused and CM had great difficulty understanding patient's very mumbled speech. CM called and spoke with both patient's daughter, Alana Stephens [phone], and , Caroline Chen [phone], about discharge planning / needs. Both state they want the patient to go to [facility]. But he has Medicare part A only, they would be financially responsible for the Rehab Physician's part of the bill ($184 for admission, $92 for discharge, and $94 for 3xweekly visits). States they want CM to call VA to get answers to their questions: Will the VA pay for his rehab at [facility]? If they won't where is the VA rehab that they would send him to and when would they admit him. When CM gets these questions answered, CM to call daughter and back and they will finalize decision about which rehab. Right of Choice completed with and daughter via telephone and copy sent to via certified mail. Daughter informed CM that patient [facility] with [facility] prior [facility]. [facility] their Home Health nurse Linda, , was working on getting them a Daniel Lift. States they have a Wheel Chair accessible van, but it is the kind that the patient has to be transferred our of his wheelchair into the seat of the van. States they are trying to get a different WC accessible van that will allow him to ride in his wheelchair. [facility] patient has been in wheelchair for the last year. Started needing assistance with transfers about a month ago and started needing help with dressing last week. States previously he was independent with everything. [facility] patient still sets up all his medications independently, takes them correctly without forgetting or reminders. States the home environment is safe. Has several pieces of equipment-listed in assessment. CM called [facility] COMPTROLLER, Hermann Steward at [phone] and left message requesting she call CM about VA rehab benefits. CM will continue to follow and assist as needed with discharge planning / needs. Pulp Press Tender: Zenaida Lozano DCP- Discharge Planning Updated by [email or web address]: Ирина Carlisle on 06/29/19 1:49 pm LEANN Jeffrey with the VA called to check in with patient. She said that if he needed or wanted the [place] inpatient rehab that I would need to touch base with the COMPTROLLER over that department. Her name is Hermann Steward & her number is [phone]. DCPIA - Discharge Planning Initial Assessment Updated by [email or web address]: Zenaida Lozano on 06/29/19 4:27 pm * Is the patient Alert and Oriented? No * How many steps to enter\exit or inside your home? Ramp * PCP [place] nurse Caroline * [facility] [address] * Preadmission Environment Home with Family * ADLs Partial Dependent * Partial ADLs (Assistance needed) Ambulation Bathing Dressing Toileting Transfers * Equipment Elevated [place] Seat Glucometer Grab Bars Hospital Bed Power Chair or Electric Scooter Shower Chair Trapeze * Other Equipment Wheel Chair Van, Low Air loss Mattress for Hospital Bed, Automatic BP machine, Was in the process of obtaining Daniel Lift from [place] prior to hospitalization. * List name and contact numbers for known caregivers / representatives who currently or will assist patient after discharge: Alana Chen, daughter, Caroline Chen, Spouse, * Verbal permission to speak to the caregivers and representatives has been obtained from the patient. N/A * Community resources currently utilized Home Health * Please name any agencies selected above. [facility]: Nurse Linda Edmonds [phone] * Additional services required to return to the preadmission environment? Yes * Can the patient safely return to the preadmission environment? Yes * Has this patient been hospitalized within the prior 30 days at any hospital? No External Providers External Provider: OTHER-OTHER Next Contact Date: Service Request Date: Service Type: Resolution: Reviewer: Comments: Last DP export: 06/29/19 3:51 p Patient Name: CHIQUI CHEN Page 75063 at 0904 All edits/amendments must be made on the electronic document DICTATION DATE: 06/30/19902 TAX TECHNICIAN: IRA 06/30/19902 RPT#: [id number] DC DATE: STATUS: ADM IN [facility] [address] [place] [address] END OF REPORT
[2019-06-30 09:21] VITALS: BP 141/55
--- NOTE | 2019-06-30 13:14 | NUR ---
Nutrition follow-up: DietL ADA consistent CHO PO Intake poor at this time Pt with no recorded BM since admit; nursing aware. Meds: Reglan- pt taking pain medication Wt: 182# Pts poor po intake possibly due to constipation. May need to start a scheduled laxative RDN following.
[2019-06-30 13:45] VITALS: BP 125/48
--- NOTE | 2019-06-30 14:04 | NUR ---
OT NOTE: PT PERFORMED WELL TODAY; EDUCATED PT ON WAYS TO INCREASE EASE OF BED MOB INCLUDING ROLLING ONTO SIDE THEN PUSHING UP WITH ARM; PRACTICED SEVERAL TIMES..PT RERQUIRES MOD ASSIST AT THIS TIME FOR BOTH ROLLING AND SUPINE TO SIT; PERFORMED SITTING ON EOB WITHOUT ASSIST; EDUCATED ON CENTER OF BALANCE AND IMPORTANCE OF BRINGING SHOULDERS FORWARD TO MAINTAIN BALANCE DUE TO CHANGE IN WT DISTRUBUTION. PERFORMED UE EXS AND EXS TO IMPROVE CORE STRENGHT. EDUCATED ON IMPORTANCE OF LIEING FLAT FOR SEVERAL HRS DURING THE DAY TO PREVENT HIP FLEX CONTRACTURES. CUATE MANSFIELD, OTR/L [phone]
--- NOTE | 2019-06-30 14:30 | NUR ---
OT NOTE: PT COMPLETED BED MOB TASKS WITH MOD A. PT COMPLETED SIDE ROLLING AND SUPINE TO SIT. PT COMPLETED FACE HYGIENE WITH SET UP. [phone] THANK YOU,SEYMOUR TEIXEIRA
--- NOTE | 2019-06-30 16:17 | MORECARE ---
CASE MANAGEMENT DISCHARGE SUMMARY PATIENT: CHIQUI CHEN UNIT: [id number] ADM DATE: 06/25/19 AGE: 74 : 45 SEX: M ROOM/BED: D.2215 AUTHOR: JING,DOC PHYSICIAN: REFERRING PHYSICIAN: MENG MANDUJANO MD DATE OF SERVICE: 06/30/19 Discharge Plan Patient Name: CHIQUI CHEN [facility] [facility] 1945 Planned Disposition: Inpatient Rehab Facility Anticipated Discharge Date: 06/30/19 Discharge Date: Expected LOS: 5 Initial Reviewer: [id number] Initial Review Date: 06/29/2019 Generated: 06/30/19 5:16 pm Comments DCP- Discharge Planning Updated by [email or web address]: Ирина Carlisle on 06/30/19 3:13 pm LEANN CEJA WITH THE VA IS MR CHEN'S PRIMARY CARE PROVIDER, SHE CALLED TO CHECK ON HIM AND GET AN UPDATE. SHE WOULD LIKE [facility] AND STATED THAT IF THE VA IS NOT ACCEPTING PATIENTS THEN THEY SHOULD COVER AN INPATIENT REHAB. SHE WAS COING TO TRY TO FIGURE OUT THE PROCESS TO MAKE THAT HAPPEN AND GET BACK WITH ME SHE STATED THAT ALL DME WOULD NEED TO BE ORDERED FROM VA AND SHE DID NOT RECONNMEND THAT IF HE NEEDED IV ABX THAT HE DOES NOT NEED TO GO HOME WITH THOSE. SHE HAS ORDERED HIM SLING AND LIFT. HER NUMBER IS [phone] IF WE HAVE ANY QUESTIONS WE CAN CONTACT HER. THIS IS HER WORK CELL AND SHE TURNS IT OFF AT 1600 AND DURING THE WEEKEND DCP- Discharge Planning Updated by [email or web address]: Ирина Carlisle on 06/30/19 7:56 am LEANN MCCRARY WITH THE VA RETURNED THE CALL FROM THE MESSAGE THAT WAS LEFT YESTERDAY. I ASKED THE QUESTIONS THAT THE FAMILY WANTED TO KNOW. THE VA IS NOT ACCEPTING ANY PATIENTS TO THE INPATIENT REHAB DUE TO THE COVID-19 THE VA WILL NOT COVER ANY COST THAT IS NOT A CONTRACTED VA SITE ( IF THEY CHOSE TO STAY AT [facility]) SHE SAID THAT THEY WOULD COVER SKILLED REHAB AT A CONTRACTED SITE. SHE THINKS THAT HE WILL NEED MORE THERAPY WHAT AN [facility] CAN PROVIDE SHE ASKED THAT CLINICALS BE FAXED TO HER AT [phone] I WILL FAX CLINICALS TO HER DCP- Discharge Planning Updated by [email or web address]: Zeniada Lozano on 06/29/19 3:[address] Patient Name: CHIQUI CHEN Admission Status: ER Accout number: [id number] Admission Date: 06-25-2019 : 1945 Admission Diagnosis:SHORTNESS OF BREATH Attending: NAZIA, Current LOS: 4 Anticipated DC Date: 06-30-2019 Planned Disposition: Inpatient Rehab Facility Primary Insurance: MEDICARE A & B Discharge Planning Comments: CM attempted to meet with patient to discuss discharge planning/needs. Patient confused and CM had great difficulty understanding patient's very mumbled speech. CM called and spoke with both patient's daughter, Alana Stephens [phone], and , Caroline Chen [phone], about discharge planning / needs. Both state they want the patient to go to [facility]. But he has Medicare part A only, they would be financially responsible for the Rehab Physician's part of the bill ($184 for admission, $92 for discharge, and $94 for 3xweekly visits). States they want CM to call VA to get answers to their questions: Will the VA pay for his rehab at [facility]? If they won't where is the [place] rehab that they would send him to and when would they admit him. When CM gets these questions answered, CM to call daughter and back and they will finalize decision about which rehab. Right of Choice completed with and daughter via telephone and copy sent to via certified mail. Daughter informed CM that patient had home [facility] with the [facility] prior to [facility]. [facility] their Home Health nurse Linda, , was working on getting them a Daniel Lift. States they have a Wheel Chair accessible van, but it is the kind that the patient has to be transferred our of his wheelchair into the seat of the van. States they are trying to get a different WC accessible van that will allow him to ride in his wheelchair. [facility] patient has been in wheelchair for the last year. Started needing assistance with transfers about a month ago and started needing help with dressing last week. States previously he was independent with everything. States patient still sets up all his medications independently, takes them correctly without forgetting or reminders. States the home environment is safe. Has several pieces of equipment-listed in assessment. CM called [facility] VP OF PRODUCT, Beverley Steward at [phone] and left message requesting she call CM about VA rehab benefits. CM will continue to follow and assist as needed with discharge planning / needs. Fruit Dumper: Zenaida Lozano DCP- Discharge Planning Updated by [email or web address]: Ирина Carlisle on 06/29/19 1:49 pm LEANN Jeffrey with the VA called to check in with patient. She said that if he needed or wanted the [place] inpatient rehab that I would need to touch base with the VP OF PRODUCT over that department. Her name is Beverley Steward & her number is [phone]. DCPIA - Discharge Planning Initial Assessment Updated by [email or web address]: Zenaida Lozano on 06/29/19 4:27 pm * Is the patient Alert and Oriented? No * How many steps to enter\exit or inside your home? Ramp * PCP [place] nurse Caroline * [facility] [address] * Preadmission Environment Home with Family * ADLs Partial Dependent * Partial ADLs (Assistance needed) Ambulation Bathing Dressing Toileting Transfers * Equipment Elevated [place] Seat Glucometer Grab Bars Hospital Bed Power Chair or Electric Scooter Shower Chair Trapeze * Other Equipment Wheel Chair Van, Low Air loss Mattress for Hospital Bed, Automatic BP machine, Was in the process of obtaining Daniel Lift from [place] prior to hospitalization. * List name and contact numbers for known caregivers / representatives who currently or will assist patient after discharge: Alana Chen, daughter, Caroline Chen, Spouse, * Verbal permission to speak to the caregivers and representatives has been obtained from the patient. N/A * Community resources currently utilized Home Health * Please name any agencies selected above. [facility]: Nurse Linda Ceja [phone] * Additional services required to return to the preadmission environment? Yes * Can the patient safely return to the preadmission environment? Yes * Has this patient been hospitalized within the prior 30 days at any hospital? No Last DP export: 06/30/19 8:04 a Patient Name: CHIQUI CHEN Page 15900 at 1617 All edits/amendments must be made on the electronic document DICTATION DATE: 06/30/191615 MINERAL INDUSTRY TEACHER: IRA 06/30/191615 RPT#: [id number] DC DATE: STATUS: ADM IN [facility] [address] [place] [address] END OF REPORT
--- NOTE | 2019-06-30 16:23 | MORECARE ---
CASE MANAGEMENT DISCHARGE SUMMARY PATIENT: CHIQUI CHEN UNIT: [id number] ADM DATE: 06/25/19 AGE: 74 : 45 SEX: M ROOM/BED: D.2215 AUTHOR: JING,DOC PHYSICIAN: REFERRING PHYSICIAN: MENG MANDUJANO MD DATE OF SERVICE: 06/30/19 Discharge Plan Patient Name: CHIQUI CHEN Facility: [facility]:[place] : 1945 Planned Disposition: Inpatient Rehab Facility Anticipated Discharge Date: 06/30/19 Discharge Date: Expected LOS: 5 Initial Reviewer: [email or web address] Initial Review Date: 06/29/2019 Generated: 06/30/19 5:23 pm Comments DCP- Discharge Planning Updated by [email or web address]: Ирина Carlisle on 06/30/19 3:[address] SPOKE WITH DAUGHTER AND ASHUTOSH ON A [address] CALLED AND DAUGHTER WAS INFORMED OF PLAN, CM WILL CONTINUE TO FOLLOW AND ASSIST NEEDED DCP- Discharge Planning Updated by [email or web address]: Ирина Carlisle on 06/30/19 3:13 pm LEANN CEJA WITH THE [facility] IS MR CHEN'S PRIMARY CARE PROVIDER, SHE CALLED TO CHECK ON HIM AND GET AN UPDATE. SHE WOULD LIKE HIM TO GO TO [facility] AND STATED THAT IF THE VA IS NOT ACCEPTING PATIENTS THEN THEY SHOULD COVER AN INPATIENT REHAB. SHE WAS COING TO TRY TO FIGURE OUT THE PROCESS TO MAKE THAT HAPPEN AND GET BACK WITH ME SHE STATED THAT ALL DME WOULD NEED TO BE ORDERED FROM VA AND SHE DID NOT RECONNMEND THAT IF HE NEEDED IV ABX THAT HE DOES NOT NEED TO GO HOME WITH THOSE. SHE HAS ORDERED HIM SLING AND LIFT. HER NUMBER IS [phone] IF WE HAVE ANY QUESTIONS WE CAN CONTACT HER. THIS IS HER WORK CELL AND SHE TURNS IT OFF AT 1600 AND DURING THE WEEKEND DCP- Discharge Planning Updated by [email or web address]: Ирина Carlisle on 06/30/19 7:56 am LEANN MCCRARY WITH THE VA RETURNED THE CALL FROM THE MESSAGE THAT WAS LEFT YESTERDAY. I ASKED THE QUESTIONS THAT THE FAMILY WANTED TO KNOW. THE VA IS NOT ACCEPTING ANY PATIENTS TO THE INPATIENT REHAB DUE TO THE COVID-19 THE VA WILL NOT COVER ANY COST THAT IS NOT A CONTRACTED VA SITE ( IF THEY CHOSE TO STAY AT [facility]) SHE SAID THAT THEY WOULD COVER SKILLED REHAB AT A CONTRACTED SITE. SHE THINKS THAT HE WILL NEED MORE THERAPY WHAT AN [facility] CAN PROVIDE SHE ASKED THAT CLINICALS BE FAXED TO HER AT [phone] I WILL FAX CLINICALS TO HER DCP- Discharge Planning Updated by [email or web address]: Zenaida Lozano on 06/29/19 3:[address] Patient Name: CHIQUI CHEN Admission Status: ER Accout number: [id number] Admission Date: 06-25-2019 : 1945 Admission Diagnosis:SHORTNESS OF BREATH Attending: NAZIA Current LOS: 4 Anticipated DC Date: 06-30-2019 Planned Disposition: Inpatient Rehab Facility Primary Insurance: MEDICARE A & B Discharge Planning Comments: CM attempted to meet with patient to discuss discharge planning/needs. Patient confused and CM had great difficulty understanding patient's very mumbled speech. CM called and spoke with both patient's daughter, Alana Stephens [phone], and , Caroline Chen [phone], about discharge planning / needs. Both state they want the patient to go to [facility] IR[facility]. But he has Medicare part A only, they would be financially responsible for the Rehab Physician's part of the bill ($184 for admission, $92 for discharge, and $94 for 3xweekly visits). States they want CM to call VA to get answers to their questions: Will the VA pay for his rehab at [facility]? If they won't where is the VA rehab that they would send him to and when would they admit him. When CM gets these questions answered, CM to call daughter and back and they will finalize decision about which rehab. Right of Choice completed with and daughter via telephone and copy sent to via certified mail. Daughter informed CM that patient had home health with the [facility] prior to hospitalization. States their Home Health nurse Ashutosh, , was working on getting them a Daniel Lift. States they have a Wheel Chair accessible van, but it is the kind that the patient has to be transferred our of his wheelchair into the seat of the van. States they are trying to get a different WC accessible van that will allow him to ride in his wheelchair. [facility] patient has been in wheelchair for the last year. Started needing assistance with transfers about a month ago and started needing help with dressing last week. States previously he was independent with everything. States patient still sets up all his medications independently, takes them correctly without forgetting or reminders. States the home environment is safe. Has several pieces of equipment-listed in assessment. CM called [facility] CATHEAD OPERATOR, Beverley Steward at [phone] and left message requesting she call CM about VA rehab benefits. CM will continue to follow and assist as needed with discharge planning / needs. Construction Checker: Zenaida Lozano DCP- Discharge Planning Updated by [email or web address]: Ирина Carlisle on 06/29/19 1:49 pm LEANN Jeffrey with the VA called to check in with patient. She said that if he needed or wanted the [place] inpatient rehab that I would need to touch base with the CATHEAD OPERATOR over that department. Her name is Beverley Steward & her number is [phone]. DCPIA - Discharge Planning Initial Assessment Updated by [id number]: Zenaida Lozano on 06/29/19 4:27 pm * Is the patient Alert and Oriented? No * How many steps to enter\exit or inside your home? Ramp * PCP [place] nurse Caroline * [facility]acy [facility] [address] * Preadmission Environment Home with Family * ADLs Partial Dependent * Partial ADLs (Assistance needed) Ambulation Bathing Dressing Toileting Transfers * Equipment Elevated Toliet Seat Glucometer Grab Bars Hospital Bed Power Chair or Electric Scooter Shower Chair Trapeze * Other Equipment Wheel Chair Van, Low Air loss Mattress for Hospital Bed, Automatic BP machine, Was in the process of obtaining Daniel Lift from [place] prior to hospitalization. * List name and contact numbers for known caregivers / representatives who currently or will assist patient after discharge: Alana Chen, daughter, Caroline Chen, Spouse, * Verbal permission to speak to the caregivers and representatives has been obtained from the patient. N/A * Community resources currently utilized Home Health * Please name any agencies selected above. [facility]: Nurse Ashutosh Ceja [phone] * Additional services required to return to the preadmission environment? Yes * Can the patient safely return to the preadmission environment? Yes * Has this patient been hospitalized within the prior 30 days at any hospital? No Last DP export: 06/30/19 3:17 p Patient Name: CHIQUI CHEN Page [id number] at 1623 All edits/amendments must be made on the electronic document DICTATION DATE: 06/30/191622 AUTOMOTIVE FUEL INJECTION SERVICER: IRA 06/30/191622 RPT#: [id number] DC DATE: STATUS: ADM IN [facility] [address] [place] [address] END OF REPORT
[2019-06-30 17:06] VITALS: BP 134/50
--- NOTE | 2019-06-30 18:34 | NUR ---
PATIENT IN BED WITH IV INTACT. NO COMPLAINTS OF PAIN OR SIGNS OF DISTRESS. CALL LIGHT WITHIN REACH.
[2019-06-30 20:00] VITALS: BP 145/53
--- NOTE | 2019-06-30 21:00 | NUR ---
PT SITTING UP IN BED WITHOUT DISTRESS, AOX4. REQUESTED PAIN PILL. GAVE OXY ORDERED WITH [facility]. PT TOOK WITHOUT DIFFICULTY. USES URINAL AT BEDSIDE. FSBS 160, 4 UNITS INSULIN GIVEN PER PROTOCOL. DENIES OTHER NEEDS. CL IN REACH, WILL CTM
[2019-07-01] VITALS: BP 144/81
[2019-07-01 04:00] VITALS: BP 173/54
[2019-07-01 08:02] VITALS: BP 165/49
[2019-07-01 08:24] LABS: BASOPHILS 0.4 % (0-2); EOSINOPHILS 3.1 % (0-7); HEMATOCRIT 32.1 % (42.0-54.0); HEMOGLOBIN 10.5 g/dL (13.5-17.5); IMMATURE GRANULOCYTES 2.4 % (0-5); LYMPHOCYTES 13.7 % (15-50); MCH 29.5 pg (26.0-34.0); MCHC 32.7 g/dL (31.0-37.0); MCV 90.2 fL (80.0-100.0); MEAN PLATELET VOLUME 7.8 fL (7.4-10.4); MONOCYTES 8.7 % (2-11); NEUTROPHILS 71.7 % (40-80); PLATELET COUNT 436 10x3/uL (130-400); RBC 3.56 10x6/uL (4.20-6.10); RDW 14.7 % (11.5-14.5); WBC 13.4 10x3/uL (4.8-10.8)
[2019-07-01 08:30] LABS: CALC OSMOLALITY 270 mosm/kg (275-300); CALCIUM 8.2 mg/dL (8.5-10.1); CARBON DIOXIDE 28.8 mmol/L (21.0-32.0); CHLORIDE - SERUM 100 mmol/L (98-107); CREATININE - SERUM 0.8 mg/dL (0.6-1.3); GLUCOSE 154 mg/dL (74-106); POTASSIUM - SERUM 3.5 mmol/L (3.5-5.1); SODIUM 134 mmol/L (136-145); UREA NITROGEN 12 mg/dL (7-18); eGFR NON AFRICAN AMERICAN > 90 mL/min (90-120)
[2019-07-01 12:06] VITALS: BP 158/51
--- NOTE | 2019-07-01 12:16 | NUR ---
OT NOTE: PRACTICED ROLLLING SIDE TO SIDE AGAIN TODAY. INCREASED EASE WITH ROLLING TO L SIDE (MIN/MOD ASSIST)..CONT TO REQUIRE EXT ASSIST WITH ROLLING TO R SIDE. SUPINE TO SIT WITH MOD ASSIST; STATIC SITTING BALANCE EXS WITHONLY OCCASSSIONAL ASSIST AND VC FOR ANT TILT. UE AND LE AROM EXS. MAX ASSIST WITH TOILET HYGIENE; SHEETS AND PADS CHANGED; EDUCATED ON IMMPORTANCE OF POSITIONING TO PREVENT PRESSURE AREAS.. POSITIONED PT ON L SIDE. CUATE MANSFIELD, OTR/L
--- NOTE | 2019-07-01 15:00 | NUR ---
PATIENT WOKE UP CONFUSED. STATED HE DIDNT KNOW HOW HE GOT HERE. REORIENTED PATIENT AT THIS TIME. EXPLAINED THAT HE HAD SURGERY AND IS IN THE HOSPITAL. VERBALIZED UNDERSTAING. IV INTACT. CALL LIGHT WITHIN REACH.
--- NOTE | 2019-07-01 15:47 | NUR ---
OT NOTE: PT COMPLETED SIDE ROLLING WITH MIN/MOD A. PT COMPLETED SUPINE TO SIT AT EOB WITH MOD A. ONCE UP AT EOB PT ABLE TO COMPLETE STATIC SITTING BALANCE WITH SBA. PT COMPLETED FACE HYGIENE WITH SET UP. PT COMPLETED HAIR GROOMING WITH SET UP. [phone] THANK YOU,SEYMOUR TEIXEIRA
[2019-07-01 16:46] VITALS: BP 162/50
--- NOTE | 2019-07-01 18:22 | MORECARE ---
CASE MANAGEMENT DISCHARGE SUMMARY PATIENT: CHIQUI CHEN UNIT: [id number] ADM DATE: 06/25/19 AGE: 74 : 45 SEX: M ROOM/BED: D.2215 AUTHOR: JING,DOC PHYSICIAN: REFERRING PHYSICIAN: MENG MANDUJANO MD DATE OF SERVICE: 07/01/19 Discharge Plan Patient Name: CHIQUI CHEN Facility: [facility]:[place] : 1945 Planned Disposition: Inpatient Rehab Facility Anticipated Discharge Date: 06/30/19 Discharge Date: Expected LOS: 5 Initial Reviewer: [email or web address] Initial Review Date: 06/29/2019 Generated: 07/01/19 7:22 pm Comments DCP- Discharge Planning Updated by [email or web address]: Opal Boateng on 07/01/19 5:[address] CM received a call from Karmen Lagunas [phone] with PA. Karmen stated that PA had not approved inpatient rehab but would approve SNF placement. Karmen stated that patient's daughter did NOT want patient to go to [facility] so she called to let CM know that the PA has contracts with [facility] and with [employer]. CM will need to get with family to see what placement option they would like. CM will continue to follow and assist as needed with discharge planning /needs. DCP- Discharge Planning Updated by [id number]: Ирина Carlisle on 06/30/19 3:[address] SPOKE WITH DAUGHTER AND LINDA ON A [address] CALLED AND DAUGHTER WAS INFORMED OF PLAN, CM WILL CONTINUE TO FOLLOW AND ASSIST NEEDED DCP- Discharge Planning Updated by [id number]: Ирина Carlisle on 06/30/19 3:[address] LINDA CEJA WITH THE VA IS MR CHEN'S PRIMARY CARE PROVIDER, SHE CALLED TO CHECK ON HIM AND GET AN UPDATE. SHE WOULD LIKE HIM TO GO TO [facility] AND STATED THAT IF THE VA IS NOT ACCEPTING PATIENTS THEN THEY SHOULD COVER AN INPATIENT REHAB. SHE WAS COING TO TRY TO FIGURE OUT THE PROCESS TO MAKE THAT HAPPEN AND GET BACK WITH ME SHE STATED THAT ALL DME WOULD NEED TO BE ORDERED FROM PA AND SHE DID NOT RECONNMEND THAT IF HE NEEDED IV ABX THAT HE DOES NOT NEED TO GO HOME WITH THOSE. SHE HAS ORDERED HIM SLING AND LIFT. HER NUMBER IS [phone] IF WE HAVE ANY QUESTIONS WE CAN CONTACT HER. THIS IS HER WORK CELL AND SHE TURNS IT OFF AT 1600 AND DURING THE WEEKEND DCP- Discharge Planning Updated by [id number]: Ирина Maylin on 06/30/19 7:[address] HERMANN WITH THE VA RETURNED THE CALL FROM THE MESSAGE THAT WAS LEFT YESTERDAY. I ASKED THE QUESTIONS THAT THE FAMILY WANTED TO KNOW. THE VA IS NOT ACCEPTING ANY PATIENTS TO THE INPATIENT REHAB DUE TO THE COVID-19 THE VA WILL NOT COVER ANY COST THAT IS NOT A CONTRACTED VA SITE ( IF THEY CHOSE TO STAY AT [facility]) SHE SAID THAT THEY WOULD COVER SKILLED REHAB AT A CONTRACTED SITE. SHE THINKS THAT HE WILL NEED MORE THERAPY WHAT [facility] CAN PROVIDE SHE ASKED THAT CLINICALS BE FAXED TO HER AT [phone] I WILL FAX CLINICALS TO HER DCP- Discharge Planning Updated by [email or web address]: Zenaida Blake on 06/29/19 3:[address] Patient Name: CHIQUI CHEN Admission Status: ER Accout number: [id number] Admission Date: 06-25-2019 : 1945 Admission Diagnosis:SHORTNESS OF BREATH Attending: NAZIA Current LOS: 4 Anticipated DC Date: 06-30-2019 Planned Disposition: Inpatient Rehab Facility Primary Insurance: MEDICARE A & B Discharge Planning Comments: CM attempted to meet with patient to discuss discharge planning/needs. Patient confused and CM had great difficulty understanding patient's very mumbled speech. CM called and spoke with both patient's daughter, Alana Stephens [phone], and , Caroline Chen [phone], about discharge planning / needs. Both state they want the patient to go to [facility] IRF. But he has Medicare part A only, they would be financially responsible for the Rehab Physician's part of the bill ($184 for admission, $92 for discharge, and $94 for 3xweekly visits). States they want CM to call VA to get answers to their questions: Will the VA pay for his rehab at [facility]? If they won't where is the VA rehab that they would send him to and when would they admit him. When CM gets these questions answered, CM to call daughter and back and they will finalize decision about which rehab. Right of Choice completed with and daughter via telephone and copy sent to via certified mail. Daughter informed CM that patient had home health with the VA prior to hospitalization. [facility] their Home Health nurse Linda, , was working on getting them a Daniel Lift. [facility] they have a Wheel Chair accessible van, but it is the kind that the patient has to be transferred our of his wheelchair into the seat of the van. States they are trying to get a different WC accessible van that will allow him to ride in his wheelchair. [facility] patient has been in wheelchair for the last year. Started needing assistance with transfers about a month ago and started needing help with dressing last week. States previously he was independent with everything. [facility] patient still sets up all his medications independently, takes them correctly without forgetting or reminders. States the home environment is safe. Has several pieces of equipment-listed in assessment. CM called [facility] STUDENT AFFAIRS DEAN, Hermann Steward at [phone] and left message requesting she call CM about VA rehab benefits. CM will continue to follow and assist as needed with discharge planning / needs. Net Programmer Analyst: Zenaida Lozano DCP- Discharge Planning Updated by [id number]: Ирина Carlisle on 06/29/19 1:49 pm LEANN Jeffrey with the VA called to check in with patient. She said that if he needed or wanted the [facility] inpatient rehab that I would need to touch base with the STUDENT AFFAIRS DEAN over that department. Her name is Hermann Steward & her number is [phone]. DCPIA - Discharge Planning Initial Assessment Updated by [email or web address]: Zenaida Lozano on 06/29/19 4:27 pm * Is the patient Alert and Oriented? No * How many steps to enter\exit or inside your home? Ramp * PCP [facility] nurse Caroline * [facility] on [address] [place] * Preadmission Environment Home with Family * ADLs Partial Dependent * Partial ADLs (Assistance needed) Ambulation Bathing Dressing Toileting Transfers * Equipment Elevated Tol[place] Seat Glucometer Grab Bars Hospital Bed Power Chair or Electric Scooter Shower Chair Trapeze * Other Equipment Wheel Chair Van, Low Air loss Mattress for Hospital Bed, Automatic BP machine, Was in the process of obtaining Daniel Lift from PA prior to hospitalization. * List name and contact numbers for known caregivers / representatives who currently or will assist patient after discharge: Alana Chen, daughter, Caroline Chen, Spouse, * Verbal permission to speak to the caregivers and representatives has been obtained from the patient. N/A * Community resources currently utilized Home Health * Please name any agencies selected above. [facility]: Nurse Linda Ceja [phone] * Additional services required to return to the preadmission environment? Yes * Can the patient safely return to the preadmission environment? Yes * Has this patient been hospitalized within the prior 30 days at any hospital? No Last DP export: 06/30/19 3:23 p Patient Name: CHIQUI CHEN Page [id number] at 1822 All edits/amendments must be made on the electronic document DICTATION DATE: 07/01/191821 PAIRER SUBSTANDARD: IRA 07/01/191821 RPT#: [id number] DC DATE: STATUS: ADM IN [facility] [address] [place] [address] END OF REPORT
--- NOTE | 2019-07-01 18:45 | NUR ---
PATIENT IN BED WITH NO COMPLAINTS. IV INTACT. CALL LIGHT WITHIN REACH. BA ON.
[2019-07-01 20:00] VITALS: BP 168/65
[2019-07-02] VITALS: BP 182/57
[2019-07-02 04:00] VITALS: BP 150/50
[2019-07-02 04:36] LABS: CALC OSMOLALITY 281 mosm/kg (275-300); CALCIUM 7.8 mg/dL (8.5-10.1); CARBON DIOXIDE 25.7 mmol/L (21.0-32.0); CHLORIDE - SERUM 101 mmol/L (98-107); CREATININE - SERUM 0.6 mg/dL (0.6-1.3); POTASSIUM - SERUM 3.7 mmol/L (3.5-5.1); SODIUM 137 mmol/L (136-145); UREA NITROGEN 14 mg/dL (7-18); eGFR NON AFRICAN AMERICAN > 90 mL/min (90-120)
[2019-07-02 04:42] LABS: GLUCOSE 221 mg/dL (74-106)
[2019-07-02 04:55] LABS: HEMATOCRIT 33.2 % (42.0-54.0); HEMOGLOBIN 11.5 g/dL (13.5-17.5); MCH 31.5 pg (26.0-34.0); MCHC 34.6 g/dL (31.0-37.0); MEAN PLATELET VOLUME 12.6 fL (7.4-10.4); RBC 3.65 10x6/uL (4.20-6.10)
[2019-07-02 04:56] LABS: PLATELET COUNT 680 10x3/uL (130-400); WBC 17.1 10x3/uL (4.8-10.8)
[2019-07-02 05:57] LABS: LYMPHOCYTES 16 % (15-50); MONOCYTES 1 % (2-11); NEUTROPHILS 81 % (40-80); PLATELET ESTIMATE INCREASED
[2019-07-02 09:45] VITALS: BP 154/57
--- NOTE | 2019-07-02 09:56 | NUR ---
PT ALERT X 4. BREATH SOUNDS DIMINISHED TO LOWER LOBES, 2.5L O2 PER NC. IV TO RIGHT FOREARM, PATENT, DRESSING CDI. BILAT AKA, WOUND VAC IN PLACE. PT REPORTING PAIN OF 2/10, WILL CONTINUE TO MONITOR. BED LOW, CALL LIGHT IN REACH. NO OTHER NEEDS AT THIS TIME.
[2019-07-02 13:53] VITALS: BP 133/52
[2019-07-02 14:01] LABS: BILIRUBIN NEGATIVE (NEGATIVE); GLUCOSE 500 mg/dL (NEGATIVE); KETONE NEGATIVE (NEGATIVE); NITRITE NEGATIVE (NEGATIVE); UROBILINOGEN 8 mg/dL (NORMAL)
[2019-07-02 14:02] LABS: BACTERIA FEW /hpf (NEGATIVE); EPITHELIAL CELLS RARE /hpf (0-5); RED CELLS - URINE OCC /hpf (0-5); WHITE CELLS - URINE NSEEN /hpf (NEGATIVE)
--- NOTE | 2019-07-02 15:35 | NUR ---
OT NOTE: PT COMPLETED BED MOB TASKS WITH SUPINE TO SIT REQUIRED MOD/MAX A. PT COMPLETED STATIC SITTING BALANCE AT EOB WITH SBA. PT COMPLETED LB HYGIENE WITH MAX A. [phone] THANK YOU,SEYMOUR TEIXEIRA
[2019-07-02 18:10] VITALS: BP 138/54
[2019-07-02 20:00] VITALS: BP 141/54
[2019-07-03] VITALS: BP 138/62
[2019-07-03 04:00] VITALS: BP 140/67
[2019-07-03 05:55] LABS: CALC OSMOLALITY 275 mosm/kg (275-300); CALCIUM 7.7 mg/dL (8.5-10.1); CARBON DIOXIDE 27.4 mmol/L (21.0-32.0); CHLORIDE - SERUM 99 mmol/L (98-107); CREATININE - SERUM 0.6 mg/dL (0.6-1.3); GLUCOSE 258 mg/dL (74-106); POTASSIUM - SERUM 3.6 mmol/L (3.5-5.1); SODIUM 134 mmol/L (136-145); eGFR NON AFRICAN AMERICAN > 90 mL/min (90-120)
[2019-07-03 05:57] LABS: BASOPHILS 0.5 % (0-2); EOSINOPHILS 2.2 % (0-7); HEMATOCRIT 33.2 % (42.0-54.0); HEMOGLOBIN 10.8 g/dL (13.5-17.5); IMMATURE GRANULOCYTES 1.8 % (0-5); LYMPHOCYTES 10.5 % (15-50); MCH 28.9 pg (26.0-34.0); MCHC 32.5 g/dL (31.0-37.0); MEAN PLATELET VOLUME 8.5 fL (7.4-10.4); MONOCYTES 7.7 % (2-11); NEUTROPHILS 77.3 % (40-80); RBC 3.74 10x6/uL (4.20-6.10); RDW 14.8 % (11.5-14.5); WBC 12.9 10x3/uL (4.8-10.8)
[2019-07-03 05:58] LABS: MCV 88.8 fL (80.0-100.0); PLATELET COUNT 447 10x3/uL (130-400)
[2019-07-03 05:59] LABS: UREA NITROGEN 9 mg/dL (7-18)
--- NOTE | 2019-07-03 07:48 | NUR ---
RESTING IN BED, NO DISTRESS NOTED, MONITOR FOR BLEEDING AND SUGARS, OR PER NC, IV INFUSING PER RFA
[2019-07-03 08:02] VITALS: BP 135/55
--- NOTE | 2019-07-03 11:37 | NUR ---
OT NOTE: PT CONTINUES TO PROGRESS WITH STRENGTH, BALANCE, AND MOBILTY. PERFORMED ROLLING FROM SIDE TO SIDE 6 XS WITH VERBAL CUES AND ONLY MIN/MOD ASSIST TODAY. PT WAS ABLE TO PERFORM SUPINE TO SIT WHILE ON HIS SIDE WITH MOD ASSIST; STATIC SITTING BALANCE ACT, TRUNK STRENGTHENING, AND UE AROM EXS WHILE SITTING ON EOB WITH OCCASSIONAL ASSIST FOR BALANCE. PT ABLE TO TOLERATE SITTING UP X APPROX 15 MIN. PERFORMED GROOMING TASKS WITH SET UP; MAX ASSIST WITH PERINEAL CARE. RECOMMEND IP REHAB. CUATE MANSFIELD OTR/L
[2019-07-03 13:58] VITALS: BP 151/62
[2019-07-03 18:13] VITALS: BP 158/77
[2019-07-03 20:00] VITALS: BP 157/63
[2019-07-04] VITALS: BP 158/53
[2019-07-04 04:00] VITALS: BP 177/69
[2019-07-04 05:47] LABS: BASOPHILS 0.7 % (0-2); EOSINOPHILS 2.4 % (0-7); HEMATOCRIT 33.7 % (42.0-54.0); HEMOGLOBIN 10.6 g/dL (13.5-17.5); IMMATURE GRANULOCYTES 1.9 % (0-5); LYMPHOCYTES 12.6 % (15-50); MCH 28.4 pg (26.0-34.0); MCHC 31.5 g/dL (31.0-37.0); MCV 90.3 fL (80.0-100.0); MEAN PLATELET VOLUME 8.4 fL (7.4-10.4); MONOCYTES 6.7 % (2-11); NEUTROPHILS 75.7 % (40-80); RBC 3.73 10x6/uL (4.20-6.10); WBC 13.6 10x3/uL (4.8-10.8)
--- NOTE | 2019-07-04 05:54 | NUR ---
PT INCONTINENT OF BLADDER. LINEN AND GOWN CHANGED. PT C/O PAIN 07/17. GAVE 1 TAB OXY IR 5 MG PO. FSBS 211 - GAVE 8 UNITS HUMALOG PER SS. NO OTHER NEEDS. WILL CONTINUE TO MONITOR.
[2019-07-04 05:55] LABS: PLATELET COUNT 537 10x3/uL (130-400)
[2019-07-04 06:19] LABS: CALC OSMOLALITY 275 mosm/kg (275-300); CALCIUM 8.3 mg/dL (8.5-10.1); CHLORIDE - SERUM 100 mmol/L (98-107); CREATININE - SERUM 0.7 mg/dL (0.6-1.3); POTASSIUM - SERUM 3.1 mmol/L (3.5-5.1); SODIUM 136 mmol/L (136-145); UREA NITROGEN 8 mg/dL (7-18); eGFR NON AFRICAN AMERICAN > 90 mL/min (90-120)
[2019-07-04 06:25] LABS: GLUCOSE 208 mg/dL (74-106)
--- NOTE | 2019-07-04 07:35 | NUR ---
resting in bed, no distress noted, iv infusing, cont to monitor wound vacs and pain
[2019-07-04 09:50] VITALS: BP 177/74
[2019-07-04 13:40] VITALS: BP 174/66
[2019-07-04 16:00] VITALS: BP 178/81
[2019-07-04 20:00] VITALS: BP 167/52
[2019-07-05] VITALS: BP 199/74
[2019-07-05 04:00] VITALS: BP 137/63
[2019-07-05 04:36] LABS: BASOPHILS 0.3 % (0-2); EOSINOPHILS 1.1 % (0-7); HEMATOCRIT 33.6 % (42.0-54.0); HEMOGLOBIN 10.7 g/dL (13.5-17.5); IMMATURE GRANULOCYTES 1.3 % (0-5); LYMPHOCYTES 9.3 % (15-50); MCH 28.4 pg (26.0-34.0); MCHC 31.8 g/dL (31.0-37.0); MCV 89.1 fL (80.0-100.0); MEAN PLATELET VOLUME 8.5 fL (7.4-10.4); MONOCYTES 7.3 % (2-11); NEUTROPHILS 80.7 % (40-80); PLATELET COUNT 514 10x3/uL (130-400); RBC 3.77 10x6/uL (4.20-6.10); RDW 14.9 % (11.5-14.5)
[2019-07-05 04:49] LABS: CALC OSMOLALITY 269 mosm/kg (275-300); CALCIUM 8.1 mg/dL (8.5-10.1); CARBON DIOXIDE 25.7 mmol/L (21.0-32.0); CHLORIDE - SERUM 97 mmol/L (98-107); CREATININE - SERUM 0.8 mg/dL (0.6-1.3); GLUCOSE 236 mg/dL (74-106); POTASSIUM - SERUM 3.3 mmol/L (3.5-5.1); SODIUM 131 mmol/L (136-145); UREA NITROGEN 10 mg/dL (7-18); eGFR NON AFRICAN AMERICAN > 90 mL/min (90-120)
[2019-07-05 09:05] VITALS: BP 143/55
--- NOTE | 2019-07-05 09:52 | NUR ---
PT ALERT X 4. BREATH SOUNDS CLEAR BILAT. IV TO RIGHT WRIST, PATENT, DRESSING CDI. WOUND VAC TO BILAT AKA, NO REDDNESS OR DRAINAGE NOTED. PT REPORTING PAIN OF 2/10, WILL CONTINUE TO MONITOR. BED LOW, CALL LIGHT IN REACH. NO OTHER NEEDS AT THIS TIME.
--- NOTE | 2019-07-05 11:32 | NUR ---
OT NOTE: PT PERFORMED WELL TODAY. PRACTICED ROLLING FROM SIDE TO SIDE WITH MOD ASSIST; PERINEAL CARE WITH MAX ASSIST; PRACTICED SCOOTING UP IN BED AND SITTING BALANCE ACT IWTH MIN ASSIST; FEEDING WITH SET UP OF TRAY; GROOMING WITH SET UP. CUATE MANSFIELD, OTR/L [phone]
[2019-07-05 12:54] VITALS: BP 148/53
--- NOTE | 2019-07-05 13:52 | NUR ---
Nutrition follow-up: Diet: Consistent CHO PO intake good at some meals; pt not eating at some meals Labs reviewed; glucose with poor to fair control intermediate SS in use WT: 182# +BM Wound VACs to oleg [facility] Pt may benefit from the addition of long acting insulin 2/2 elevated glucose RDN will order Glucerna Shake with meals to increase kcal/protein intake Following.
--- NOTE | 2019-07-05 16:22 | MORECARE ---
CASE MANAGEMENT DISCHARGE SUMMARY PATIENT: CHIQUI CHEN UNIT: [id number] ADM DATE: 06/25/19 AGE: 74 : 45 SEX: M ROOM/BED: D.2215 AUTHOR: JING,DOC PHYSICIAN: REFERRING PHYSICIAN: MENG MANDUJANO MD DATE OF SERVICE: 07/05/19 Discharge Plan Patient Name: CHIQUI CHEN Facility: [facility]:[place] : 1945 Planned Disposition: Inpatient Rehab Facility Anticipated Discharge Date: 06/30/19 Discharge Date: Expected LOS: 5 Initial Reviewer: [email or web address] Initial Review Date: 06/29/2019 Generated: 07/05/19 5:21 pm Comments DCP- Discharge Planning Updated by [id number]: Ирина Carlisle on 07/05/19 3:[address] LINDA WITH THE [facility] CALLED TO GET AN UPDATE ON PATIENT SHE SAID HIS NORMAL WBC IS BETWEEN 11-12 DCP- Discharge Planning Updated by [email or web address]: Opal Boateng on 07/01/19 5:[address] CM received a call from Karmen Lagunas [phone] with [place]. Karmen stated that [place] had not approved inpatient rehab but would approve SNF placement. Karmen stated that patient's daughter did NOT want patient to go to [facility] so she called to let CM know that the [place] contracts with [employer] and [facility]. CM will need to get with family to see what placement option they would like. CM will continue to follow and assist as needed with discharge planning /needs. DCP- Discharge Planning Updated by [email or web address]: Ирина Carlisle on 06/30/19 3:[address] SPOKE WITH DAUGHTER AND LINDA ON A 3 WAY CALLED AND DAUGHTER WAS INFORMED OF PLAN, CM WILL CONTINUE TO FOLLOW AND ASSIST NEEDED DCP- Discharge Planning Updated by [email or web address]: Ирина Carlisle on 06/30/19 3:[address] LINDA CEJA WITH THE VA IS MR CHEN'S PRIMARY CARE PROVIDER, SHE CALLED TO CHECK ON HIM AND GET AN UPDATE. SHE WOULD LIKE HIM TO GO TO [facility] REHAB AND STATED THAT IF THE [place] IS NOT ACCEPTING PATIENTS THEN THEY SHOULD COVER AN INPATIENT REHAB. SHE WAS COING TO TRY TO FIGURE OUT THE PROCESS TO MAKE THAT HAPPEN AND GET BACK WITH ME SHE STATED THAT ALL DME WOULD NEED TO BE ORDERED FROM VA AND SHE DID NOT RECONNMEND THAT IF HE NEEDED IV ABX THAT HE DOES NOT NEED TO GO HOME WITH THOSE. SHE HAS ORDERED HIM SLING AND LIFT. HER NUMBER IS [phone] IF WE HAVE ANY QUESTIONS WE CAN CONTACT HER. THIS IS HER WORK CELL AND SHE TURNS IT OFF AT 1600 AND DURING THE WEEKEND DCP- Discharge Planning Updated by [email or web address]: Ирина Carlisle on 06/30/19 7:[address] HERMANN WITH THE VA RETURNED THE CALL FROM THE MESSAGE THAT WAS LEFT YESTERDAY. I ASKED THE QUESTIONS THAT THE FAMILY WANTED TO KNOW. THE VA IS NOT ACCEPTING ANY PATIENTS TO THE INPATIENT REHAB DUE TO THE COVID-19 THE VA WILL NOT COVER ANY COST THAT IS NOT A CONTRACTED VA SITE ( IF THEY CHOSE TO STAY AT [facility]) SHE SAID THAT THEY WOULD COVER SKILLED REHAB AT A CONTRACTED SITE. SHE THINKS THAT HE WILL NEED MORE THERAPY WHAT AN [facility] RE[facility] CAN PROVIDE SHE ASKED THAT CLINICALS BE FAXED TO HER AT [phone] I WILL FAX CLINICALS TO HER DCP- Discharge Planning Updated by [email or web address]: Zenaida Blake on 06/29/19 3:[address] Patient Name: CHIQUI CHEN Admission Status: ER Accout number: [id number] Admission Date: 06-25-2019 : 1945 Admission Diagnosis:SHORTNESS OF BREATH Attending: NAZIA Current LOS: 4 Anticipated DC Date: 06-30-2019 Planned Disposition: Inpatient Rehab Facility Primary Insurance: MEDICARE A & B Discharge Planning Comments: CM attempted to meet with patient to discuss discharge planning/needs. Patient confused and CM had great difficulty understanding patient's very mumbled speech. CM called and spoke with both patient's daughter, Alana Stephens [phone], and , Caroline Chen [phone], about discharge planning / needs. Both state they want the patient to go to [facility] IR[facility]. But he has Medicare part A only, they would be financially responsible for the Rehab Physician's part of the bill ($184 for admission, $92 for discharge, and $94 for 3xweekly visits). States they want CM to call VA to get answers to their questions: Will the VA pay for his rehab at [facility]? If they won't where is the VA rehab that they would send him to and when would they admit him. When CM gets these questions answered, CM to call daughter and back and they will finalize decision about which rehab. Right of Choice completed with and daughter via telephone and copy sent to via certified mail. Daughter informed CM that patient had home health with the [facility] prior to hospitalization. [facility] their Home Health nurse Linda, , was working on getting them a Daniel Lift. States they have a Wheel Chair accessible van, but it is the kind that the patient has to be transferred our of his wheelchair into the seat of the van. States they are trying to get a different WC accessible van that will allow him to ride in his wheelchair. [facility] patient has been in wheelchair for the last year. Started needing assistance with transfers about a month ago and started needing help with dressing last week. States previously he was independent with everything. [facility] patient still sets up all his medications independently, takes them correctly without forgetting or reminders. States the home environment is safe. Has several pieces of equipment-listed in assessment. CM called VA REHAB SERVICES AIDE, Hermann Steward at [phone] and left message requesting she call CM about VA rehab benefits. CM will continue to follow and assist as needed with discharge planning / needs. Advanced Practice Nurse Psychotherapist: Zenaida Lozano DCP- Discharge Planning Updated by [email or web address]: Ирина Carlisle on 06/29/19 1:49 pm LEANN Jeffrey with the VA called to check in with patient. She said that if he needed or wanted the [place] inpatient rehab that I would need to touch base with the REHAB SERVICES AIDE over that department. Her name is Hermann Steward & her number is [phone]. DCPIA - Discharge Planning Initial Assessment Updated by [id number]: Zenaida Lozano on 06/29/19 4:27 pm * Is the patient Alert and Oriented? No * How many steps to enter\exit or inside your home? Ramp * PCP VA nurse Caroline * [facility] [address] [place] * Preadmission Environment Home with Family * ADLs Partial Dependent * Partial ADLs (Assistance needed) Ambulation Bathing Dressing Toileting Transfers * Equipment Elevated Toliet Seat Glucometer Grab Bars Hospital Bed Power Chair or Electric Scooter Shower Chair Trapeze * Other Equipment Wheel Chair Van, Low Air loss Mattress for Hospital Bed, Automatic BP machine, Was in the process of obtaining Daniel Lift from [place] prior to hospitalization. * List name and contact numbers for known caregivers / representatives who currently or will assist patient after discharge: Alana Chen, daughter, Caroline Chen, Spouse, * Verbal permission to speak to the caregivers and representatives has been obtained from the patient. N/A * Community resources currently utilized Home Health * Please name any agencies selected above. [place] [facility]: Nurse Linda Ceja [phone] * Additional services required to return to the preadmission environment? Yes * Can the patient safely return to the preadmission environment? Yes * Has this patient been hospitalized within the prior 30 days at any hospital? No Last DP export: 07/01/19 5:22 p Patient Name: CHIQUI CHEN Page [id number] at 1622 All edits/amendments must be made on the electronic document DICTATION DATE: 07/05/191620 FIRE FIGHTER: IRA 07/05/191620 RPT#: [id number] DC DATE: STATUS: ADM IN [facility] [address] [place] [address] END OF REPORT
[2019-07-05 16:36] VITALS: BP 138/52
[2019-07-05 20:34] VITALS: BP 148/63
[2019-07-06 00:45] VITALS: BP 167/62
[2019-07-06 05:54] LABS: CALC OSMOLALITY 274 mosm/kg (275-300); CALCIUM 8.4 mg/dL (8.5-10.1); CARBON DIOXIDE 26.8 mmol/L (21.0-32.0); CHLORIDE - SERUM 99 mmol/L (98-107); CREATININE - SERUM 0.7 mg/dL (0.6-1.3); GLUCOSE 223 mg/dL (74-106); POTASSIUM - SERUM 3.1 mmol/L (3.5-5.1); SODIUM 135 mmol/L (136-145); UREA NITROGEN 8 mg/dL (7-18); eGFR NON AFRICAN AMERICAN > 90 mL/min (90-120)
[2019-07-06 05:57] VITALS: BP 155/65
[2019-07-06 06:12] LABS: HEMATOCRIT 33.1 % (42.0-54.0); HEMOGLOBIN 10.7 g/dL (13.5-17.5); MCH 28.8 pg (26.0-34.0); MCHC 32.3 g/dL (31.0-37.0); MEAN PLATELET VOLUME 8.4 fL (7.4-10.4); PLATELET COUNT 476 10x3/uL (130-400); RBC 3.72 10x6/uL (4.20-6.10); RDW 15.3 % (11.5-14.5); WBC 16.2 10x3/uL (4.8-10.8)
--- NOTE | 2019-07-06 07:39 | NUR ---
ALERT AND ORIENTED. LUNGS CLEAR BILATERALLY. HEART SOUNDS S1 AND S2 EHARD IN ALL OROZCO. BOWEL SOUNDS ACTIVE X 4. BILATERAL AKA NOTED. IV TO RIGHT WRIST PATENT WITHOUT REDNESS. BED LOW. FALL PRECAUTIONS IN PLACE. CALL MARISCAL AND PERSONAL ITEMS IN REACH. WILL CONTINUE TO MONITOR.
[2019-07-06 09:18] VITALS: BP 129/72; BP 165/76
--- NOTE | 2019-07-06 12:21 | NUR ---
RESTING IN BED. DENIES NEEDS. WILL CONTINUE TO MONITOR.
[2019-07-06 13:21] VITALS: BP 179/66
--- NOTE | 2019-07-06 13:59 | NUR ---
REHAB PRESCREENING Spoke with Heidi Boateng in Case Management to confirm this patient understands that with Medicare A he will be accountable for the H&P $184, DC Summary $92 and $94 each physician visit during his rehab staff. She states yes the patient is aware and agreeable. I will begin his screen and notify case management when approvals are in place. He will then be ready for admission to rehab when his physicians feel he is appropriate for discharge. Thank you for this referral! Vivienne Fitch, LINEN SUPERVISOR Rehab PD
[2019-07-06 14:05] LABS: ANISOCYTOSIS OCC; EOSINOPHILS 1 % (0-7); LYMPHOCYTES 13 % (15-50); MONOCYTES 9 % (2-11); NEUTROPHILS 76 % (40-80); PLATELET ESTIMATE INCREASED
--- NOTE | 2019-07-06 15:18 | NUR ---
OT NOTE: PT COMPLETED SIDE ROLLING WTH MOD A. PT COMPLETED SUPINE TO SIT AT EOB WITH MAX A. PT COMPLETED EOB STATIC SITTING WITH MIN A. PT COMPLETED UE AROM EXS . PT REQUIRED INCREASED PHYSICAL ASSIST WITH STATIC SITTING AT EOB . [phone] THANK YOU,SEYMOUR TEIXEIRA
[2019-07-06] MEDS ORDERED: PROTONIX40 MG PO (16:40)
[2019-07-06] MEDS ORDERED: ACETAMINOPHEN500 M1 PO (16:41)
[2019-07-06 16:44] VITALS: BP 169/68
--- NOTE | 2019-07-06 17:08 | NUR ---
REPORT CALLED TO REHAB. WAITING DR FORREST TO PUT IN DC ORDERS WITH WOUND CARE, DC ABX, AND PAIN MEDICATION.
--- NOTE | 2019-07-06 18:39 | NUR ---
DISCHARGE EDUCATION PROVIDED BOTH WRITTEN AND VERBAL. VERBALIZED UNDERSTANDING. DENIES FURTHER QUESTIONS. IV REMOVED FROM RIGHT WRIST WITH TIP INTACT. TELEMETRY REMOVED AND RETURNED TO WAREHOUSE TECHNICIAN PATRICIA. PATIENT DC TO REHAB WITH ALL BELONGINGS. REHAB NURSE NOTIFIED TO CALL MED SURG WHEN PATIENT ADMITTED ON FLOOR AND WILL ADD PAIN MEDICATION TO MAR PER DR FORREST.
--- NOTE | 2019-07-06 22:02 | MORECARE ---
CASE MANAGEMENT DISCHARGE SUMMARY PATIENT: CHIQUI CHEN UNIT: [id number] ADM DATE: 06/25/19 AGE: 74 : 45 SEX: M ROOM/BED: D.2215 AUTHOR: JING,DOC PHYSICIAN: REFERRING PHYSICIAN: MENG MANDUJANO MD DATE OF SERVICE: 07/06/19 Discharge Plan Patient Name: CHIQUI CHEN Facility: [facility]:[place] : 1945 Planned Disposition: Inpatient Rehab Facility Anticipated Discharge Date: 06/30/19 Discharge Date: 07/06/2019 Expected LOS: 5 Initial Reviewer: [email or web address] Initial Review Date: 06/29/2019 Generated: 07/06/19 11:01 pm Comments DCP- Discharge Planning Updated by [email or web address]: Ирина Carlisle on 07/05/19 3:[address] LINDA WITH THE [place] CALLED TO GET AN UPDATE ON PATIENT SHE SAID HIS NORMAL WBC IS BETWEEN 11-12 DCP- Discharge Planning Updated by [email or web address]: Opal Boateng on 07/01/19 5:[address] CM received a call from Karmen Lagunas [phone] with [place]. Karmen stated that [place] had not approved inpatient rehab but would approve SNF placement. Karmen stated that patient's daughter did NOT want patient to go to [facility] so she called to let CM know that the [place] has contracts with [employer] and with [employer]. CM will need to get with family to see what placement option they would like. CM will continue to follow and assist as needed with discharge planning /needs. DCP- Discharge Planning Updated by [email or web address]: Ирина Carlisle on 06/30/19 3:[address] SPOKE WITH DAUGHTER AND LINDA ON A 3 WAY CALLED AND DAUGHTER WAS INFORMED OF PLAN, CM WILL CONTINUE TO FOLLOW AND ASSIST NEEDED DCP- Discharge Planning Updated by [email or web address]: Ирина Carlisle on 06/30/19 3:[address] LINDA CEJA WITH THE VA IS MR CHEN'S PRIMARY CARE PROVIDER, SHE CALLED TO CHECK ON HIM AND GET AN UPDATE. SHE WOULD LIKE HIM TO GO TO [facility] AND STATED THAT IF THE [place] IS NOT ACCEPTING PATIENTS THEN THEY SHOULD COVER AN INPATIENT REHAB. SHE WAS COING TO TRY TO FIGURE OUT THE PROCESS TO MAKE THAT HAPPEN AND GET BACK WITH ME SHE STATED THAT ALL DME WOULD NEED TO BE ORDERED FROM VA AND SHE DID NOT RECONNMEND THAT IF HE NEEDED IV ABX THAT HE DOES NOT NEED TO GO HOME WITH THOSE. SHE HAS ORDERED HIM SLING AND LIFT. HER NUMBER IS [phone] IF WE HAVE ANY QUESTIONS WE CAN CONTACT HER. THIS IS HER WORK CELL AND SHE TURNS IT OFF AT 1600 AND DURING THE WEEKEND DCP- Discharge Planning Updated by [email or web address]: Ирина Carlisle on 06/30/19 7:[address] HERMANN WITH THE VA RETURNED THE CALL FROM THE MESSAGE THAT WAS LEFT YESTERDAY. I ASKED THE QUESTIONS THAT THE FAMILY WANTED TO KNOW. THE VA IS NOT ACCEPTING ANY PATIENTS TO THE INPATIENT REHAB DUE TO THE COVID-19 THE VA WILL NOT COVER ANY COST THAT IS NOT A CONTRACTED VA SITE ( IF THEY CHOSE TO STAY AT [facility]) SHE SAID THAT THEY WOULD COVER SKILLED REHAB AT A CONTRACTED SITE. SHE THINKS THAT HE WILL NEED MORE THERAPY WHAT AN [facility] CAN PROVIDE SHE ASKED THAT CLINICALS BE FAXED TO HER AT [phone] I WILL FAX CLINICALS TO HER DCP- Discharge Planning Updated by [id number]: Zenaida Lozano on 06/29/19 3:[address] Patient Name: CHIQUI CHEN Admission Status: ER Accout number: [id number] Admission Date: 06-25-2019 : 1945 Admission Diagnosis:SHORTNESS OF BREATH Attending: NAZIA Current LOS: 4 Anticipated DC Date: 06-30-2019 Planned Disposition: Inpatient Rehab Facility Primary Insurance: MEDICARE A & B Discharge Planning Comments: CM attempted to meet with patient to discuss discharge planning/needs. Patient confused and CM had great difficulty understanding patient's very mumbled speech. CM called and spoke with both patient's daughter, Alana Stephens [phone], and , Caroline Chen [phone], about discharge planning / needs. Both state they want the patient to go to [facility] IR[facility]. But he has Medicare part A only, they would be financially responsible for the Rehab Physician's part of the bill ($184 for admission, $92 for discharge, and $94 for 3xweekly visits). States they want CM to call VA to get answers to their questions: Will the VA pay for his rehab at [facility]? If they won't where is the VA rehab that they would send him to and when would they admit him. When CM gets these questions answered, CM to call daughter and back and they will finalize decision about which rehab. Right of Choice completed with and daughter via telephone and copy sent to via certified mail. Daughter informed CM that patient had home health with the VA prior to hospitalization. [facility] their Home Health nurse Linda, , was working on getting them a Daniel Lift. [facility] they have a Wheel Chair accessible van, but it is the kind that the patient has to be transferred our of his wheelchair into the seat of the van. [facility] they are trying to get a different WC accessible van that will allow him to ride in his wheelchair. [facility] patient has been in wheelchair for the last year. Started needing assistance with transfers about a month ago and started needing help with dressing last week. States previously he was independent with everything. [facility] patient still sets up all his medications independently, takes them correctly without forgetting or reminders. States the home environment is safe. Has several pieces of equipment-listed in assessment. CM called VA PUBLIC TRANSIT SPECIALIST, Hermann Steward at [phone] and left message requesting she call CM about VA rehab benefits. CM will continue to follow and assist as needed with discharge planning / needs. Long Goods Drier: Zenaida Lozano DCP- Discharge Planning Updated by [id number]: Ирина Carlisle on 06/29/19 1:49 pm LEANN Jeffrey with the VA called to check in with patient. She said that if he needed or wanted the [place] inpatient rehab that I would need to touch base with the PUBLIC TRANSIT SPECIALIST over that department. Her name is Hermann Steward & her number is [phone]. DCPIA - Discharge Planning Initial Assessment Updated by [email or web address]: Zenaida Lozano on 06/29/19 4:27 pm * Is the patient Alert and Oriented? No * How many steps to enter\exit or inside your home? Ramp * PCP [facility] nurse Caroline * [facility] [address] [place] * Preadmission Environment Home with Family * ADLs Partial Dependent * Partial ADLs (Assistance needed) Ambulation Bathing Dressing Toileting Transfers * Equipment Elevated Tol[place] Seat Glucometer Grab Bars Hospital Bed Power Chair or Electric Scooter Shower Chair Trapeze * Other Equipment Wheel Chair Van, Low Air loss Mattress for Hospital Bed, Automatic BP machine, Was in the process of obtaining Daniel Lift from [place] prior to hospitalization. * List name and contact numbers for known caregivers / representatives who currently or will assist patient after discharge: Alana Chen, daughter, Caroline Chen, Spouse, * Verbal permission to speak to the caregivers and representatives has been obtained from the patient. N/A * Community resources currently utilized Home Health * Please name any agencies selected above. [facility]: Nurse Linda Ceja [phone] * Additional services required to return to the preadmission environment? Yes * Can the patient safely return to the preadmission environment? Yes * Has this patient been hospitalized within the prior 30 days at any hospital? No Last DP export: 07/05/19 3:22 p Patient Name: CHIQUI CHEN Page 65367 at 2202 All edits/amendments must be made on the electronic document DICTATION DATE: 07/06/192200 FIELD CREW CHIEF: IRA 07/06/192200 RPT#: [id number] DC DATE:07/06/19 STATUS: DIS IN [facility] [address] [place] [address] END OF REPORT
--- NOTE | 2019-07-06 22:09 | MORECARE ---
CASE MANAGEMENT DISCHARGE SUMMARY PATIENT: CHIQUI CHEN UNIT: [id number] ADM DATE: 06/25/19 AGE: 74 : 45 SEX: M ROOM/BED: D.2215 AUTHOR: JING,DOC PHYSICIAN: REFERRING PHYSICIAN: MENG MANDUJANO MD DATE OF SERVICE: 07/06/19 Discharge Plan Patient Name: CHIQUI CHEN Facility: [facility]:[place] : 1945 Planned Disposition: Inpatient Rehab Facility Anticipated Discharge Date: 06/30/19 Discharge Date: 07/06/2019 Expected LOS: 5 Initial Reviewer: [email or web address] Initial Review Date: 06/29/2019 Generated: 07/06/19 11:09 pm Comments DCP- Discharge Planning Updated by [email or web address]: Opal Boateng on 07/06/19 9:[address] CM SPOKE WITH PATIENT'S DAUGHTER AND SHE STATED THAT THEY ARE WILLING TO PAY FOR THE PHYSICIAN'S PART FOR INPATIENT REHAB. CM NOTIFIED DIOMEDES IN REHAB AND NOTIFIED DR. BINGHAM THAT REHAB CAN ACCEPT PATIENT TODAY. MARIN ALSO SPOKE WITH LINDA CEJA AND SHE STATED THAT THE [facility] WILL GO [facility] AND GET HIS LIFT ORDERED FOR HIS HOME AND SHE STATED THAT IF THE PATIENT HAS ANY OTHER DME NEEDS TO CALL HER [phone]. MARIN ALSO SPOKE WITH MARCIANO FROM THE [facility] AND INFORMED HER OF INPATIENT REHAB TRANSFER. D/C IMM SIGNED DCP- Discharge Planning Updated by [email or web address]: Ирина Carlisle on 07/05/19 3:[address] LINDA WITH THE [facility] CALLED TO GET AN UPDATE ON PATIENT SHE SAID HIS NORMAL WBC IS BETWEEN 11-12 DCP- Discharge Planning Updated by [email or web address]: Opal Boateng on 07/01/19 5:[address] MARIN received a call from Karmen Lagunas [phone] with [facility]. Karmen stated that [facility] had not approved inpatient rehab but would approve SNF placement. Karmen stated that patient's daughter did NOT want patient to go to [facility] so she called to let CM know that the [facility] has contracts with [facility] and with [employer]. CM will need to get with family to see what placement option they would like. CM will continue to follow and assist as needed with discharge planning /needs. DCP- Discharge Planning Updated by [email or web address]: Ирина Carlisle on 06/30/19 3:[address] SPOKE WITH DAUGHTER AND LINDA ON A [address] CALLED AND DAUGHTER WAS INFORMED OF PLAN, CM WILL CONTINUE TO FOLLOW AND ASSIST NEEDED DCP- Discharge Planning Updated by [id number]: Ирина Carlisle on 06/30/19 3:[address] LINDA MARCIAL WITH THE VA IS [facility] CHEN'S PRIMARY CARE PROVIDER, SHE CALLED TO CHECK ON HIM AND GET AN UPDATE. [facility] AND STATED THAT IF THE VA IS NOT ACCEPTING PATIENTS THEN THEY SHOULD COVER AN INPATIENT REHAB. SHE WAS COING TO TRY TO FIGURE OUT THE PROCESS TO MAKE THAT HAPPEN AND GET BACK WITH ME SHE STATED THAT ALL DME WOULD NEED TO BE ORDERED FROM VA AND SHE DID NOT RECONNMEND THAT IF HE NEEDED IV ABX THAT HE DOES NOT NEED TO GO HOME WITH THOSE. SHE HAS ORDERED HIM SLING AND LIFT. HER NUMBER IS [phone] IF WE HAVE ANY QUESTIONS WE CAN CONTACT HER. THIS IS HER WORK CELL AND SHE TURNS IT OFF AT 1600 AND DURING THE WEEKEND DCP- Discharge Planning Updated by [id number]: Ирина Carlisle on 06/30/19 7:[address] HERMANN WITH THE VA RETURNED THE CALL FROM THE MESSAGE THAT WAS LEFT YESTERDAY. I ASKED THE QUESTIONS THAT THE FAMILY WANTED TO KNOW. THE VA IS NOT ACCEPTING ANY PATIENTS TO THE INPATIENT REHAB DUE TO THE COVID-19 THE VA WILL NOT COVER ANY COST THAT IS NOT A CONTRACTED VA SITE ( IF THEY CHOSE TO STAY AT [facility]) SHE SAID THAT THEY WOULD COVER SKILLED REHAB AT A CONTRACTED SITE. SHE THINKS THAT HE WILL NEED MORE THERAPY WHAT [facility] CAN PROVIDE SHE ASKED THAT CLINICALS BE FAXED TO HER AT [phone] I WILL FAX CLINICALS TO HER DCP- Discharge Planning Updated by [id number]: Zenaida Lozano on 06/29/19 3:[address] Patient Name: CHIQUI CHEN Admission Status: ER Accout number: [id number] Admission Date: 06-25-2019 : 1945 Admission Diagnosis:SHORTNESS OF BREATH Attending: NAZIA, Current LOS: 4 Anticipated DC Date: 06-30-2019 Planned Disposition: Inpatient Rehab Facility Primary Insurance: MEDICARE A & B Discharge Planning Comments: CM attempted to meet with patient to discuss discharge planning/needs. Patient confused and CM had great difficulty understanding patient's very mumbled speech. CM called and spoke with both patient's daughter, Alana Stephens [phone], and , Caroline Chen [phone], about discharge planning / needs. Both state they want the patient to go to [facility] IRF. But he has Medicare part A only, they would be financially responsible for the Rehab Physician's part of the bill ($184 for admission, $92 for discharge, and $94 for 3xweekly visits). States they want CM to call VA to get answers to their questions: Will the VA pay for his rehab at [facility]? If they won't where is the VA rehab that they would send him to and when would they admit him. When CM gets these questions answered, CM to call daughter and back and they will finalize decision about which rehab. Right of Choice completed with and daughter via telephone and copy sent to via certified mail. Daughter informed CM that patient had home health with the VA prior to hospitalization. [facility] their Home Health nurse Linda, , was working on getting them a Daniel Lift. [facility] they have a Wheel Chair accessible van, but it is the kind that the patient has to be transferred our of his wheelchair into the seat of the van. States they are trying to get a different WC accessible van that will allow him to ride in his wheelchair. [facility] patient has been in wheelchair for the last year. Started needing assistance with transfers about a month ago and started needing help with dressing last week. States previously he was independent with everything. [facility] patient still sets up all his medications independently, takes them correctly without forgetting or reminders. States the home environment is safe. Has several pieces of equipment-listed in assessment. CM called [facility] CHEST PAINTING LEADERHermann at [phone] and left message requesting she call CM about VA rehab benefits. CM will continue to follow and assist as needed with discharge planning / needs. Marketing Finance Specialist: Zenaida Lozano [facility]- Discharge Planning Updated by [email or web address]: Ирина Carlisle on 06/29/19 1:[address] Marciano Jeffrey with the VA called to check in with patient. She said that if he needed or wanted the [facility] inpatient rehab that I would need to touch base with the CHEST PAINTING LEADER over that department. Her name is Hermann Steward & her number is [phone]. [facility]CP[facility] - Discharge Planning Initial Assessment Updated by [email or web address]: Zenaida Blake on 06/29/19 4:27 pm * Is the patient Alert and Oriented? No * How many steps to enter\exit or inside your home? Ramp * PCP VA nurse Caroline * [facility] [address] [place] * Preadmission Environment Home with Family * ADLs Partial Dependent * Partial ADLs (Assistance needed) Ambulation Bathing Dressing Toileting Transfers * Equipment Elevated Toliet Seat Glucometer Grab Bars Hospital Bed Power Chair or Electric Scooter Shower Chair Trapeze * Other Equipment Wheel Chair Van, Low Air loss Mattress for Hospital Bed, Automatic BP machine, Was in the process of obtaining Daniel Lift from [facility] prior to hospitalization. * List name and contact numbers for known caregivers / representatives who currently or will assist patient after discharge: Alana Chen, daughter, Caroline Chen, Spouse, * Verbal permission to speak to the caregivers and representatives has been obtained from the patient. N/A * Community resources currently utilized Home Health * Please name any agencies selected above. [facility]: Nurse Linda Ceja [phone] * Additional services required to return to the preadmission environment? Yes * Can the patient safely return to the preadmission environment? Yes * Has this patient been hospitalized within the prior 30 days at any hospital? No Coverage Notice Reviewer: [id number] Lisbeth Boateng Notice Issued Date-Time: 07/06/2019 16:30 Notice Type: IM Discharge Notice Notice Delivered To: Patient Relationship to Patient: Self Field Ring Assembler Name: Delivery Method: HAND - Hand Delivered Marlen Days: Prior Verbal Notification: Recipient Understood Notice: Yes Recipient Signature: Yes Med Rec Note Co-signed by Attending: Coverage Notice Comment: Last DP export: 07/06/19 9:02 p Patient Name: CHIQUI CHEN Page [id number] at 2209 All edits/amendments must be made on the electronic document DICTATION DATE: 07/06/192208 SHRINK PIT OPERATOR: IRA 07/06/192208 RPT#: [id number] HI DATE:07/06/19 STATUS: DIS IN [facility] [address] [place] [address] END OF REPORT
== END 2019-07-06 18:41 | DRG 239 ==
LOC: D.ER 15:16 → D.MS 17:56
PROVIDERS: Emergency Medicine; Internal Medicine Nephrology; Orthopaedic Surgery; ADMIT Family Medicine; ATTEND Family Medicine
PROC: 0Y6C0Z2 Detachment at Right Upper Leg, Mid, Open Approach (ICD-10-PCS; 2019-06-27)
PROC: 0Y6D0Z2 Detachment at Left Upper Leg, Mid, Open Approach (ICD-10-PCS; principal; 2019-06-27 08:12)
DX: E11.52 Type 2 diabetes mellitus with diabetic peripheral angiopathy with gangrene (principal); I50.31 Acute diastolic (congestive) heart failure; I50.33 Acute on chronic diastolic (congestive) heart failure; I70.269 Atherosclerosis of native arteries of extremities with gangrene, unspecified extremity; E87.1 Hypo-osmolality and hyponatremia; J43.9 Emphysema, unspecified; D64.9 Anemia, unspecified; E78.5 Hyperlipidemia, unspecified; K21.9 Gastro-esophageal reflux disease without esophagitis; I11.0 Hypertensive heart disease with heart failure; I69.328 Other speech and language deficits following cerebral infarction

== ENCOUNTER 2019-07-06 19:32 | Inpatient (IN) | payer MEDICARE ==
[~2019-07-06] VITALS: Ht 165.1 cm; Wt 82.6 kg
[~2019-07-06 19:32] MED LIST: ACETAMINOPHEN500 M1 PO; BASAGLAR K100 UNIT/1; BAYER CHEWABLE81 MG PO; BUMETANIDE0.5 MG; FLOMAX0.4 MG PO; GABAPENTIN300 MG; GLUCOTROL XL 1010 MG; IODOSORB40 GM; LIPITOR40 MG PO; LISINOPRIL20 MG; PROTONIX40 MG PO; RANITIDINE HCL150 M1; TOPROL XL50 MG
--- NOTE | 2019-07-06 20:13 | NUR ---
ADMIT TO PHYSICAL REHAB AND SERVICES OF DR BLAKELY. AWAKE AND ALERT. BILATERAL AKA WITH WOUND VACS IN PLACE TO EACH SITE. RESPIRATIONS UNLABORED. NO ACUTE DISTRESS NOTED. SEE ADMISSION ASSESSMENT. CALL LIGHT IN REACH.
[2019-07-06 23:05] VITALS: BP 161/70
[2019-07-07 00:25] VITALS: BP 161/70; BMI 30.3
--- NOTE | 2019-07-07 03:32 | NUR ---
RESTING IN BED WITH RESPIRATIONS UNLABORED. WOUND VACS IN PLACE TO BILATERAL AKA'S. NO ACUTE DISTRESS NOTED. CALL LIGHT IN REACH.
[2019-07-07 07:22] LABS: HEMOGLOBIN 10.7 g/dL (13.5-17.5); MCH 28.5 pg (26.0-34.0); MCHC 31.5 g/dL (31.0-37.0); MCV 90.4 fL (80.0-100.0); MEAN PLATELET VOLUME 8.5 fL (7.4-10.4); PLATELET COUNT 548 10x3/uL (130-400); RBC 3.76 10x6/uL (4.20-6.10); RDW 15.6 % (11.5-14.5); WBC 14.7 10x3/uL (4.8-10.8)
[2019-07-07 07:38] LABS: CALC OSMOLALITY 277 mosm/kg (275-300); CALCIUM 8.5 mg/dL (8.5-10.1); CARBON DIOXIDE 28.6 mmol/L (21.0-32.0); CHLORIDE - SERUM 100 mmol/L (98-107); CREATININE - SERUM 0.8 mg/dL (0.6-1.3); GLUCOSE 215 mg/dL (74-106); POTASSIUM - SERUM 3.8 mmol/L (3.5-5.1); SODIUM 137 mmol/L (136-145); UREA NITROGEN 8 mg/dL (7-18); eGFR NON AFRICAN AMERICAN > 90 mL/min (90-120)
[2019-07-07 08:00] VITALS: BP 132/52
--- NOTE | 2019-07-07 08:00 | NUR ---
PATIENT IS ALERT/ORIENT. CALL LIGHT WITHIN REACH. VOICES NO NEEDS AT THIS TIME. WILL CONTINUE WITH PLAN OF CARE
[2019-07-07 08:55] LABS: LYMPHOCYTES 16 % (15-50); MONOCYTES 7 % (2-11); NEUTROPHILS 74 % (40-80); PLATELET ESTIMATE INCREASED
[2019-07-07 08:56] LABS: ROULEAUX 1+; TEAR DROP CELLS OCC
[2019-07-07 13:52] VITALS: Ht 165.1 cm; Wt 82.6 kg
--- NOTE | 2019-07-07 16:00 | NUR ---
I have reviewed this patient and I concur with the Shift Assessment completed by the Licensed Practical Nurse today this shift.
--- NOTE | 2019-07-07 16:04 | NUR ---
OLGA LIMB AND BRACE INTO SEE PATIENT. TALKED TO PATIENT IN REGARDS TO STUMP MICHELLE. NEED TO WAIT UNTIL WOUND VAC REMOVED.
--- NOTE | 2019-07-07 16:10 | NUR ---
CARE TEAM MEETING: PATIENT IS NEW TO UNIT AND WILL BE RA AT NEXT MEETING. WILL CONTINUE TO FOLLOW WITH PATIENT.
--- NOTE | 2019-07-07 16:30 | RHP ---
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 HISTORY OF PRESENT ILLNESS: The patient is a 74-year-old gentleman with multiple CVAs with residual deficits, dyslipidemia, diabetes, COPD and emphysema, presented to the ED with a pretty severe reddening and swelling to his lower extremities. The patient was noted to be communicative and oriented, but though his speech was slurred and difficult to understand at times. He had shortness of breath and bilateral lower extremity pain. He did tell us that he lives with his and daughter who lives very close. He reports that his feet was run over by a wheelchair and he has continued to be worsening of wound since then. He reports daily tobacco use, but no other drug use. The patient was admitted with bilateral lower extremity diabetic foot ulcers, peripheral arterial disease, bilateral necrotic foot. The patient was admitted to the medical floor and consulted IR. They had some procedures done, but there was nothing they could do to salvage his limbs. A CTA AFRO showed severe atherosclerotic changes and peripheral arterial disease with multifocal segmental stenosis and lower extremities, and occlusion of the right external iliac artery, right dorsalis pedis, distal left popliteal occlusion and occlusion of the left anterior tibial and dorsalis pedis and peroneal arteries for the level of the ankle. Dr. May felt like an AKA or BKA was likely. He was placed on Zosyn and vancomycin. The patient has been using a wheelchair for the last year and was unable to transfer himself until about a month ago and began requiring assistance for ADLs. He was able to set up his own medications and took them correctly without reminders. The patient is very weak. He has got poor sitting balance secondary to bilateral wrhak-arl-ruhw amputations. He is mod to max assist for ADLs and total assist with ambulation. He requires intensive therapy, medications adjustment, pain control. He has had decreased activity tolerance, decreased strength, proximal muscle weakness, balance deficits, decreased range of motion, impaired mobility and self-care deficit. These are all barriers to his discharge home safely at this time. Hopefully, he will go home to his and daughter who lives nearby. COMORBIDITIES: Include anemia, COPD, diabetes, dyslipidemia, emphysema, gastroesophageal reflux disease, hypertension, peripheral vascular disease, hyponatremia. PAST MEDICAL HISTORY: Significant for diabetes, COPD, emphysema, tobacco use, acid reflux, arthritis, pressure ulcers, vascular insufficiency and peripheral arterial disease. PAST SURGICAL HISTORY: As above. ALLERGIES: No known drug allergies. CURRENT MEDICATIONS: Include Flomax 0.4 mg daily, he is on metoprolol 50 mg daily, aspirin 81 mg daily, glipizide 10 mg daily, Protonix 40 mg daily, atorvastatin 40 mg at bedtime, he is on insulin sliding scale intermediate resistance at this time with Humalog, he is on gabapentin 300 mg at bedtime, HISTORY AND PHYSICAL [id number] CHIQUI CHEN OxyIR 5 mg every 4 hours p.r.n., glucose replacement protocol and Tylenol as needed. HABITS: No alcohol or illicit drug use. He is a smoker. FAMILY HISTORY: Noncontributory. SOCIAL HISTORY: The patient hopes to return back home and get back to his prior level of functioning. REVIEW OF SYSTEMS: GENERAL: Does complain of weakness and fatigue. HEENT: Denies cold, cough, or congestion. CARDIOVASCULAR: Denies chest pain. PHYSICAL EXAMINATION: VITAL SIGNS: Stable, afebrile. GENERAL: An elderly gentleman in no acute distress upon exam. HEENT: Normocephalic and atraumatic. Mucosa is somewhat moist. TMs appear shiny and mobile. NECK: Supple with no lymphadenopathy. LUNGS: Clear at this time. HEART: Regular rate and rhythm. ABDOMEN: Benign. EXTREMITIES: No clubbing, cyanosis or edema. There is noted to have bilateral AKAs. NEUROLOGIC: He does have weakness. LABORATORY DATA: White count is 14.7, H&H of 10.7 and 34 and platelet count is 548. His sodium is 137, potassium 3.8, BUN and creatinine of 8 and 0.8 and blood sugar is noted to be 215. ASSESSMENT: This is a 74-year-old gentleman noted to have bilateral tvspj-lat-vpyz amputation. The patient has potential to make improvement. We instituted the following multidisciplinary therapies including, but not limited to physical, occupational, respiratory, speech, nutritional services, prosthetics and orthotics. Given his complex medical condition and risks for more complications, rehabilitation services cannot be provided at a low level of care such as skilled nurse facility. PLAN: 1. Admit to [facility] for intensive inpatient therapy to include the following disciplines; A. Physical therapy to improve gait, all transfer skills and bed mobility to a modified independent level. B. Occupational therapy to improve activities of daily living. C. Case management to assist with discharge planning and placement options. D. Nutrition to assist with nutritional needs. E. Rehabilitation nursing to assist in monitoring the patient's underlying medical conditions and to assist with any type of bowel or bladder management. 2. The patient's current medication and medical care will be continued. 3. The patient will be placed on standard fall precautions. 4. The patient's estimated length of stay is approximately 7-10 days. 5. We will discuss this patient during care team staff meeting this week. We will continue on medications as prescribed, I will get orthotics to see him HISTORY AND PHYSICAL [id number] CHIQUI CHEN during his stay and keep up-to-date with the care team and also the adult protective caseworker. TRANSINT:[id number] Voice Confirmation ID: [id number] DOCUMENT ID: [id number] CAROL notes whether there has been none or any medical/functional change since admission: - No change since pre-admission screen. CAROL attests patient continues to be appropriate for IRF: - Continues to be appropriate. CHIQUI BLAKELY MD at 1630 CC: [id number] DICTATION DATE: 07/07/19 0903 DISCOVERY MANAGER: 07/07/19 0950 ADM IN [facility] [address] [place] [address]
--- NOTE | 2019-07-07 19:12 | NUR ---
RECEIVED PT LYING IN BED EYES CLOSED RESTING. HOB ELEVATED. RR EVEN AND UNLABORED. CALL LIGHT WITHIN REACH. FALL PRECAUTIONS IN PLACE. CPOC
[2019-07-07 20:33] VITALS: BP 153/50
--- NOTE | 2019-07-08 00:32 | NUR ---
PT LYING IN BED EYES CLOSED RESTING QUIETLY. RR EVEN AND UNLABORED. CALL LIGHT WITHIN REACH. FALL PRECAUTIONS IN PLACE. CPOC
--- NOTE | 2019-07-08 03:39 | NUR ---
PT LYING IN BED EYES CLOSED RESTING QUIETLY. RR EVEN AND UNLABORED. CALL LIGHT WITHIN REACH. BED ALARM ON. CPOC
--- NOTE | 2019-07-08 06:22 | NUR ---
INCONTINENCE CARE PROVIDED. LARGE VOID. LINEN CHANGED. MEPILEX DRESSING PLACED ON COCCYX D/T SHEARING. CALL LIGHT WITHIN REACH. BED ALARM ON. CPOC
[2019-07-08 08:00] VITALS: BP 115/61
--- NOTE | 2019-07-08 08:00 | NUR ---
PT RESTING IN BED WITH EYES OPEN CALL LIGHT IN REACH WILL MONITER.
--- NOTE | 2019-07-08 12:53 | NUR ---
PATIENT ADMITTED TO REHAB FROM ACUTE FLOOR. HIS PCP IS ASHUTOSH CEJA FROM [facility]. IF PATIENT NEEDS ANY DME IT IS TO GO THROUGH THE [facility] . DISCHARGE PLANS ARE FOR THE PATIENT TO RETURN HOME WITH FAMILY. WILL CONTINUE TO FOLLOW WITH PATIENT.
--- NOTE | 2019-07-08 18:03 | NUR ---
PT RESTING IN BED WITH EYES OPEN CALL LIGHT IN REACH WILL MONITER
[2019-07-08 20:00] VITALS: BP 141/45
--- NOTE | 2019-07-08 21:56 | NUR ---
ASSESSMENT COMPLETED. SPEECH VERY DIFFICULT TO UNDERSTAND. SEE NURSING FLOW SHEET. ALERT AND ORIENTED. BILATERAL AKA WITH WOND VAC INTACT. MEDS ADMINISTERED PER ORDERS WITHOUT DIFFICULTY. INCONTINENT OF URINE. CALL LIGHT IN REACH AND BED IN LOW POSITION.
--- NOTE | 2019-07-08 22:30 | NUR ---
COMPLETE BATH AND LINEN CHANGE PERFORMED. NO C/O VOICED.
--- NOTE | 2019-07-09 06:01 | NUR ---
AM MEDS ADMINISTERED WITHOUT DIFFICULTY. INCONTINENT. CLEANED WITH LINEN CHANGE.
[2019-07-09 08:26] LABS: BASOPHILS 0.4 % (0-2); EOSINOPHILS 1.2 % (0-7); HEMATOCRIT 32.4 % (42.0-54.0); HEMOGLOBIN 10.4 g/dL (13.5-17.5); IMMATURE GRANULOCYTES 0.8 % (0-5); LYMPHOCYTES 11.2 % (15-50); MCH 28.8 pg (26.0-34.0); MCHC 32.1 g/dL (31.0-37.0); MCV 89.8 fL (80.0-100.0); MEAN PLATELET VOLUME 8.2 fL (7.4-10.4); MONOCYTES 12.3 % (2-11); NEUTROPHILS 74.1 % (40-80); PLATELET COUNT 483 10x3/uL (130-400); RBC 3.61 10x6/uL (4.20-6.10); RDW 15.2 % (11.5-14.5); WBC 16.4 10x3/uL (4.8-10.8)
[2019-07-09 08:27] LABS: CALC OSMOLALITY 270 mosm/kg (275-300); CALCIUM 8.7 mg/dL (8.5-10.1); CARBON DIOXIDE 27.5 mmol/L (21.0-32.0); CHLORIDE - SERUM 99 mmol/L (98-107); CREATININE - SERUM 0.7 mg/dL (0.6-1.3); SODIUM 135 mmol/L (136-145); UREA NITROGEN 8 mg/dL (7-18); eGFR NON AFRICAN AMERICAN > 90 mL/min (90-120)
[2019-07-09 08:29] LABS: GLUCOSE 150 mg/dL (74-106)
[2019-07-09 08:57] VITALS: BP 141/56
--- NOTE | 2019-07-09 11:50 | NUR ---
PT RESTING IN BED AT THIS TIME. NO ACUTE DISTRESS NOTED. PT IS ALERT AND ORIENTED. PT IS ON O2 AT 2 LITERS. PT MOVES N/C. READJUST NEEDED. PT IS AKA WITH WOUND VACS ATTACHED. INTACT AND NO LEAKAGE NOTED. PT HAS INCONTIENT EPISODES. PT IS AC AND HS FINGERSTICKS. PT DOES HAVE TRAPEZE BAR ABOVE BED TO ASSIST WITH BED MOVEMENT. PT STARTED K-DUR 40 MEQ BID FOR LOW K+. BED ALARM IN PLACE AND ACTIVE. WILL CONT PLAN OF CARE.
--- NOTE | 2019-07-09 17:08 | NUR ---
PT STATED PT C/O OF PAIN AT THIS TIME. OXYCODONE 5 MG PO ADMINISTERED PER PRN ORDER. FSBS: 1130:223, 1630: 198. INSULIN COVERAGE ADMINISTERED.
[2019-07-09 20:04] VITALS: BP 121/54
--- NOTE | 2019-07-09 20:05 | NUR ---
RESTING IN BED WITH RESPIRATIONS UNLABORED. BILATERAL AKA'S WITH WOUND VACS IN PLACE. NO DISTRESS NOTED. CALL LIGHT IN REACH.
--- NOTE | 2019-07-10 01:40 | NUR ---
RESTING IN BED WITH RESPIRATIONS UNLABORED AND NO DISTRESS NOTED.
--- NOTE | 2019-07-10 05:20 | NUR ---
QUIET HOURS. NO ACUTE CHANGES IN CONDITION THIS SHIFT. BILATERAL WOUND VACS IN PLACE. NO DISTRESS NOTED. CALL LIGHT IN REACH.
[2019-07-10 07:44] LABS: BASOPHILS 0.7 % (0-2); EOSINOPHILS 2.3 % (0-7); HEMATOCRIT 33.7 % (42.0-54.0); HEMOGLOBIN 10.7 g/dL (13.5-17.5); IMMATURE GRANULOCYTES 0.9 % (0-5); LYMPHOCYTES 13.7 % (15-50); MCH 28.7 pg (26.0-34.0); MCHC 31.8 g/dL (31.0-37.0); MCV 90.3 fL (80.0-100.0); MEAN PLATELET VOLUME 8.4 fL (7.4-10.4); MONOCYTES 9.1 % (2-11); NEUTROPHILS 73.3 % (40-80); PLATELET COUNT 500 10x3/uL (130-400); RBC 3.73 10x6/uL (4.20-6.10); RDW 15.3 % (11.5-14.5)
[2019-07-10 07:53] LABS: CALC OSMOLALITY 274 mosm/kg (275-300); CARBON DIOXIDE 28.4 mmol/L (21.0-32.0); CHLORIDE - SERUM 99 mmol/L (98-107); CREATININE - SERUM 0.7 mg/dL (0.6-1.3); GLUCOSE 126 mg/dL (74-106); POTASSIUM - SERUM 3.2 mmol/L (3.5-5.1); SODIUM 137 mmol/L (136-145); UREA NITROGEN 9 mg/dL (7-18); eGFR NON AFRICAN AMERICAN > 90 mL/min (90-120)
--- NOTE | 2019-07-10 08:24 | NUR ---
PT RESTING IN BED EATING BREAKFAST TOLERATING WELL WILL MONITER
[2019-07-10 10:30] VITALS: BP 131/50
--- NOTE | 2019-07-10 11:00 | NUR ---
I have reviewed this patient and I concur with the Shift Assessment completed by the Licensed Practical Nurse today this shift.
--- NOTE | 2019-07-10 17:57 | NUR ---
PT RESTING IN BED WITH EYES OPEN CALL LIGHT IN REACH NO PROBLEMS WILL MONITER
--- NOTE | 2019-07-10 19:30 | NUR ---
PT IN BED, WANTS TO GO HOME, EXPLAINED NEEDS TO CONSENTRATE ON THERAPY SO HE IS AT HIS BEST IN ORDER TO FUNCTION SAFELY AT HOME, NO NEEDS NOTED, FALL PRECAUTIONS IN PLACE, FLUIDS/CALL LIGHT WITHIN REACH.
--- NOTE | 2019-07-11 01:45 | NUR ---
PT INCONTINENT CLEANED/DRIED/CHANGED PT, REMOVED SOILED/REPLACED WITH CLEAN PADS/TOP SHEET/BLANKET, NO OTHER NEEDS NOTED, FALL PRECAUTIONS IN PLACE, FLUIDS/CALL LIGHT WITHIN REACH
[2019-07-11 02:53] VITALS: BP 111/47
--- NOTE | 2019-07-11 06:23 | NUR ---
PT RECIEVED BED BATH, PT IS VERY EXCORIATED AND IS VERY TENDER IN HIS GROIN/SCROTUM/INNER THIGHS/PENIS, BUTTRUMS BUTT PASTE APPLIED
[2019-07-11 08:11] VITALS: BP 122/99
--- NOTE | 2019-07-11 09:36 | NUR ---
PATIENT IS ALERT/ORIENT. SLURGED SPEECH. SAT UP IN BED TO EAT BREAKFAST. TOTAL ASST DUE TO BILATERAL AKA. CALL LIGHT WITHIN REACH. VOICES NO NEEDS AT THIS TIME. BED ALARM ON. CALL LIGHT WITHIN REACH. WILL CONTINUE WITH PLAN OF CARE
--- NOTE | 2019-07-11 13:29 | NUR ---
I have reviewed this patient and I concur with the Shift Assessment completed by the Licensed Practical Nurse today this shift.
--- NOTE | 2019-07-11 19:54 | NUR ---
PT IN BED, DID NOT EAT SUPPER, FALL PRECAUTIONS IN PLACE, FLUIDS/CALL LIGHT WITHIN REACH
--- NOTE | 2019-07-11 22:18 | NUR ---
PT INCONTINENT OF URINE CLEANED/CHANGED, NO OTHER NEEDS NOTED
[2019-07-12 00:16] VITALS: BP 172/71
[2019-07-12 06:42] LABS: BASOPHILS 0.4 % (0-2); EOSINOPHILS 1.6 % (0-7); HEMATOCRIT 34.9 % (42.0-54.0); HEMOGLOBIN 10.9 g/dL (13.5-17.5); IMMATURE GRANULOCYTES 0.7 % (0-5); LYMPHOCYTES 12.9 % (15-50); MCH 27.9 pg (26.0-34.0); MCHC 31.2 g/dL (31.0-37.0); MCV 89.5 fL (80.0-100.0); MEAN PLATELET VOLUME 8.3 fL (7.4-10.4); MONOCYTES 8.6 % (2-11); NEUTROPHILS 75.8 % (40-80); PLATELET COUNT 568 10x3/uL (130-400); RDW 15.1 % (11.5-14.5); WBC 15.1 10x3/uL (4.8-10.8)
[2019-07-12 06:58] LABS: CALC OSMOLALITY 268 mosm/kg (275-300); CALCIUM 9.2 mg/dL (8.5-10.1); CARBON DIOXIDE 26.9 mmol/L (21.0-32.0); CHLORIDE - SERUM 97 mmol/L (98-107); CREATININE - SERUM 0.7 mg/dL (0.6-1.3); GLUCOSE 131 mg/dL (74-106); SODIUM 134 mmol/L (136-145); UREA NITROGEN 9 mg/dL (7-18); eGFR NON AFRICAN AMERICAN > 90 mL/min (90-120)
[2019-07-12 07:00] LABS: POTASSIUM - SERUM 3.8 mmol/L (3.5-5.1)
--- NOTE | 2019-07-12 08:00 | NUR ---
PATIENT AWAKE AND ALERT, UP IN BED EATING BREAKFAST, DENIES ANY NEEDS AT THIS TIME, C/L AND H2O IN REACH.
[2019-07-12 08:24] VITALS: BP 144/75
--- NOTE | 2019-07-12 12:00 | NUR ---
PT. AWAKE AND ALERT, FSBS 332 12 UNITS GIVEN PER ORDERS, NEW DRESSING APPLIED TO BUTTOCK, DENIES ANY OTHER NEEDS AT THIS TIME, C/L AND H2O IN REACH.
--- NOTE | 2019-07-12 13:03 | NUR ---
Nutrition Follow-up: Pt confused. PO intake seems to be improving; 50-75% eaten yesterday. Diet: Diabetic, Glucerna TID, Elliot BID PO intake: 43% avg x 6 meals Wt: 182# (07/06) Last BM: 07/10 per chart Labs noted: Na 134, Glu 131 Meds noted: Miralax, KDur, Glucotrol, Protonix, Humalog -Encourage PO intake and honor food preferences within diet restrictions. -Monitor wt. -RD following.
--- NOTE | 2019-07-12 16:00 | NUR ---
PT. AWAKE AND ALERT WATCHING TV, DENIES ANY NEEDS AT THIS TIME, C/L AND FLUIDS IN REACH.
--- NOTE | 2019-07-12 20:00 | NUR ---
ALERT RESTING IN BED, DENIES PAIN OR NEEDS AT THIS TIME , CALL LIGHT IN REACH SEE SHIFT ASSESSMENT
[2019-07-12 20:04] VITALS: BP 110/37
--- NOTE | 2019-07-13 02:16 | NUR ---
EYES CLOSED RESP UNLABORED CALL LIGHT IN REACH
--- NOTE | 2019-07-13 05:45 | NUR ---
NO CHANGE IN ASSESSMENT
--- NOTE | 2019-07-13 07:15 | NUR ---
AROUSES EASILY TO VERBAL STIMULI.ORIENTED.DYSARTHRIC SPEECH.DRESSINGS INTACT TO BILAT AKA .DENIES NEEDS AT PRESENT TIME.WILL CONTINUE WITH CURRENT PLAN OF CARE.CL IN EASY REACH,BED IN LOW POSITION.
[2019-07-13 08:23] VITALS: BP 129/67
--- NOTE | 2019-07-13 08:55 | NUR ---
PO MEDS TAKEN WITHOUT DIFFICULTY.
--- NOTE | 2019-07-13 11:40 | NUR ---
FSBS 248 WILL MEDICATE PER SLIDING SCALE.DENIES NEEDS.CL IN EASY REACH.
--- NOTE | 2019-07-13 19:00 | NUR ---
BEDSIDE REPORT COMPLETE. PT LYING IN BED SUPINE. ALERT AND ORIENTED X4. SPEECH DYSHASIC R/T HX CVA. DENIES ANY NEEDS OR PAIN. DRESSINGS TO BILATERAL STUMPS C/D/I. CALL LIGHT WITHIN REACH. FALL PRECAUTIONS IN PLACE. CPOC
[2019-07-13 21:58] VITALS: BP 148/61
--- NOTE | 2019-07-14 00:34 | NUR ---
PT LYING IN BED EYES CLOSED RESTING. HOB ELEVATED. NO SIGNS OF ACUTE DISTRESS NOTED. CALL LIGHT WITHIN REACH. FALL PRECAUTIONS IN PLACE. WILL CONTINUE TO MONITOR
--- NOTE | 2019-07-14 04:02 | NUR ---
PT LYING IN BED EYES CLOSED RESTING COMFORTABLY. RR EVEN AND UNLABORED. CALL LIGHT WITHIN REACH. FALL PRECAUTIONS IN PLACE. CPOC
--- NOTE | 2019-07-14 06:30 | NUR ---
INCONTINENCE CARE PROVIDED. MED VOID. CALMOSEPTINE APPLIED TO BUTTOCKS. REPOSITIONED TO LEFT SIDE. DENIES ANY OTHER NEEDS OR PAIN. CALL LIGHT WITHIN REACH. FALL PRECAUTIONS IN PLACE. WILL CONTINUE TO MONITOR
--- NOTE | 2019-07-14 07:35 | NUR ---
PT RESTING IN BED WITH EYES OPEN CALL LIGHT IN REACH NO PROBLEMS WILL MONITER
[2019-07-14 08:00] VITALS: BP 130/38
[2019-07-14 08:25] LABS: CALC OSMOLALITY 271 mosm/kg (275-300); CALCIUM 8.6 mg/dL (8.5-10.1); CARBON DIOXIDE 27.3 mmol/L (21.0-32.0); CHLORIDE - SERUM 100 mmol/L (98-107); CREATININE - SERUM 0.8 mg/dL (0.6-1.3); GLUCOSE 125 mg/dL (74-106); SODIUM 136 mmol/L (136-145); UREA NITROGEN 11 mg/dL (7-18); eGFR NON AFRICAN AMERICAN > 90 mL/min (90-120)
[2019-07-14 08:50] LABS: BASOPHILS 0.4 % (0-2); EOSINOPHILS 2.5 % (0-7); HEMATOCRIT 35.1 % (42.0-54.0); HEMOGLOBIN 10.9 g/dL (13.5-17.5); IMMATURE GRANULOCYTES 0.7 % (0-5); LYMPHOCYTES 11.1 % (15-50); MCHC 31.1 g/dL (31.0-37.0); MCV 90.2 fL (80.0-100.0); MEAN PLATELET VOLUME 8.5 fL (7.4-10.4); MONOCYTES 7.9 % (2-11); NEUTROPHILS 77.4 % (40-80); PLATELET COUNT 517 10x3/uL (130-400); RBC 3.89 10x6/uL (4.20-6.10); RDW 15.2 % (11.5-14.5); WBC 14.2 10x3/uL (4.8-10.8)
--- NOTE | 2019-07-14 15:23 | NUR ---
CARE TEAM MEETING: PATIENT IS PROGRESSING SLOWLY IN THERAPY. TEAM RECCOMENDS THAT PATIENT DISCHARGE TO A SNF WILL NOTIFY ASHUTOSH CEJA AT [facility]. WILL CONTINUE TO FOLLOW WITH PATIENT.
--- NOTE | 2019-07-14 18:40 | NUR ---
PT RESTING IN BED WITH EYES OPEN CALL LIGHT IN REACH WILL MONITER
--- NOTE | 2019-07-14 19:21 | NUR ---
AWAKE AND ALERT. RESTING IN BED WITH RESPIRATIONS UNLABORED. NO ACUTE DISTRESS NOTED. CALL LIGHT IN REACH.
[2019-07-14 21:42] VITALS: BP 125/52
--- NOTE | 2019-07-15 00:24 | NUR ---
RESTING IN BED WITH RESPIRATIONS UNLABORED. NO DISTRESS NOTED. CALL LIGHT IN REACH.
--- NOTE | 2019-07-15 05:11 | NUR ---
QUIET HOURS. NO ACUTE CHANGES IN CONDITION THIS SHIFT. HAD BED BATH DONE AND TOLERATED WELL. NO ACUTE DISTRESS NOTED.
--- NOTE | 2019-07-15 07:30 | NUR ---
A/A/OX4. DENIES ANY PAIN AT PRESENT TIME AND NO REQUESTS VOICED. RESP EVEN AND UNLABORED WITH 02 ON VIA N/C AT 2 L/M. SIDERAILS UP X 2, CALL LIGHT IN REACH AND BED IN LOW LOCKED POSITION. 1ST STEP OVERLAY ON BED AND OPERATING PROPERLY. WILL CONTINUE POC
[2019-07-15 08:00] VITALS: BP 136/61
--- NOTE | 2019-07-15 15:42 | NUR ---
DRESSING TO BILATERAL AKA CHANGED. INCISIONS C/D/I SUTURES PATENT.
--- NOTE | 2019-07-15 17:55 | NUR ---
I have reviewed this patient and I concur with the Shift Assessment completed by the Licensed Practical Nurse today this shift.
--- NOTE | 2019-07-15 18:55 | NUR ---
RESTING IN BED WITH RESPIRATIONS UNLABORED. NO ACUTE DISTRESS NOTED. DRESSINGS INTACT TO BILATERAL AKA'S. NO DISTRESS NOTED. CALL LIGHT IN REACH.
[2019-07-15 20:54] VITALS: BP 125/66
--- NOTE | 2019-07-16 05:08 | NUR ---
QUIET HOURS. NO ACUTE CHANGES IN CONDITION THIS SHIFT. RESTING IN BED WITH NO DISTRESS NOTED.
[2019-07-16 06:20] LABS: CALC OSMOLALITY 273 mosm/kg (275-300); CALCIUM 8.9 mg/dL (8.5-10.1); CARBON DIOXIDE 25.4 mmol/L (21.0-32.0); CHLORIDE - SERUM 100 mmol/L (98-107); CREATININE - SERUM 0.7 mg/dL (0.6-1.3); GLUCOSE 190 mg/dL (74-106); SODIUM 135 mmol/L (136-145); UREA NITROGEN 10 mg/dL (7-18); eGFR NON AFRICAN AMERICAN > 90 mL/min (90-120)
[2019-07-16 06:30] LABS: BASOPHILS 0.6 % (0-2); EOSINOPHILS 3.4 % (0-7); HEMATOCRIT 34.7 % (42.0-54.0); HEMOGLOBIN 10.7 g/dL (13.5-17.5); LYMPHOCYTES 13.6 % (15-50); MCH 27.5 pg (26.0-34.0); MCHC 30.8 g/dL (31.0-37.0); MCV 89.2 fL (80.0-100.0); MEAN PLATELET VOLUME 8.6 fL (7.4-10.4); MONOCYTES 7.8 % (2-11); NEUTROPHILS 73.6 % (40-80); PLATELET COUNT 522 10x3/uL (130-400); RBC 3.89 10x6/uL (4.20-6.10); RDW 15.4 % (11.5-14.5); WBC 14.1 10x3/uL (4.8-10.8)
--- NOTE | 2019-07-16 08:00 | NUR ---
PT RESTING IN BED WITH EYES OPEN CALL LIGHT IN REACH WILL MONITER
[2019-07-16 08:18] VITALS: BP 147/40
--- NOTE | 2019-07-16 15:03 | NUR ---
[facility]. WILL CONTINUE TO FOLLOW WITH PATIENT.
--- NOTE | 2019-07-16 16:00 | NUR ---
Buttocks appear discolored reddish purple - perineal area appears to be red and edematous. Recommended calmoseptine cream once/shift and as needed. Pt needs to turn/reposition every 2 hours while in bed. He is able to do so with a trapeze bar. Wound care will monitor.
--- NOTE | 2019-07-16 17:18 | NUR ---
PT RESTING IN BED WITH EYES OPEN CALL LIGHT IN REACH WILL MONITER
--- NOTE | 2019-07-16 18:55 | NUR ---
BEDSIDE REPORT COMPLETE. PT LYING IN BED SUPINE EYES CLOSED RESTING COMFORTABLY. RR EVEN AND UNLABORED. OVERLAY MATTRESS INFLATED WORKING PROPERLY. BILATERAL LOWER STUMP DRESSING C/D/I. CALL LIGHT WITHIN REACH. FALL PRECAUTIONS IN PLACE. CPOC
[2019-07-16 21:15] VITALS: BP 153/59
--- NOTE | 2019-07-17 00:44 | NUR ---
PT LYING IN BED ON RIGHT SIDE EYES CLOSED RESTING COMFORTABLY. RR EVEN AND UNLABORED. CALL LIGHT WITHIN REACH. FALL PRECAUTIONS IN PLACE. WILL CONTINUE TO MONITOR
--- NOTE | 2019-07-17 05:04 | NUR ---
PT LYING IN BED ON LEFT SIDE EYES CLOSED RESTING QUIETLY. RR EVEN AND UNLABORED. CALL LIGHT WITHIN REACH. FALL PRECAUTIONS IN PLACE. CPOC
[2019-07-17 08:00] VITALS: BP 155/94
--- NOTE | 2019-07-17 08:00 | NUR ---
PATIENT IS ALERT TO SELF AND PLACE ONLY. ON A FIRST STEP MATTRESS. CALL LIGHT WITHIN REACH. VOICES NO NEEDS AT THIS TIME. WILL CONTINUE WITH PLAN OF CARE
--- NOTE | 2019-07-17 14:53 | NUR ---
PATIENT INCONT OF URINE. BED CHANGED AND LIA CARE GIVEN
[2019-07-17 19:30] VITALS: BP 117/66
--- NOTE | 2019-07-17 19:30 | NUR ---
BEDSIDE REPORT COMPLETE. PT LYING IN BED WATCHING TV. ALERT AND ORIENTED X4. SPEECH IS IMPROVING. BILATERAL STUMP DRESSING C/D/I. DENIES ANY NEEDS OR PAIN. VS STABLE. SHIFT ASSESSMENT COMPLETE. REPOSITIONED TO RIGHT SIDE. CALL LIGHT WITHIN REACH. FALL PRECAUTIONS IN PLACE. CPOC
--- NOTE | 2019-07-17 23:43 | NUR ---
PT LYING IN BED EYES CLOSED RESTING QUIETLY. RR EVEN AND UNLABORED. CALL LIGHT WITHIN REACH. FALL PRECAUTIONS IN PLACE. WILL CONTINUE TO MONITOR
--- NOTE | 2019-07-18 02:08 | NUR ---
PT LYING IN BED ON LEFT SIDE EYES CLOSED RESTING COMFORTABLY. RR EVEN AND UNLABORED. CALL LIGHT WITHIN REACH. FALL PRECAUTIONS IN PLACE. CPOC
--- NOTE | 2019-07-18 06:03 | NUR ---
PT LYING IN BED AWAKE. ASSISTED IN REPOSITIONING TO RIGHT SIDE. DENIES ANY NEEDS OR PAIN. CALL LIGHT AND WATER WITHIN REACH. FALL PRECAUTIONS IN PLACE. CPOC
--- NOTE | 2019-07-18 07:41 | NUR ---
PATIENT ALERT/ORIENT. SITTING UP IN BED. FIRST STEP MATTRESS ON BED. TURNED EMPLOYEE DEVELOPMENT DIRECTOR LIGHT AND ASKED FOR PRN PAIN MEDICATION FOR BACK PAIN. GIVEN. WILL CONTINUE WITH PLAN OF CARE
[2019-07-18 08:00] VITALS: BP 167/48
--- NOTE | 2019-07-18 13:36 | NUR ---
PATIENT INCONT OF URINE. COMPLETE BED CHANGED. LIA CARE GIVEN. TIARA APPLIED TO BOTTOM. ASST OF TWO TO CHANGED BED AND PULL PATIENT UP IN BED
--- NOTE | 2019-07-18 18:55 | NUR ---
BEDSIDE REPORT COMPLETE. PT LYING IN BED ON LEFT SIDE WATCHING TV. ALERT AND ORIENTED X3. SPEECH SLURRED. NO SIGNS OF ACUTE DISTRESS NOTED. CALL LIGHT AND WATER WITHIN REACH. FALL PRECAUTIONS IN PLACE. CPOC
[2019-07-18 19:36] VITALS: BP 145/60
--- NOTE | 2019-07-18 23:18 | NUR ---
PT LYING IN BED ON RIGHT SIDE EYES CLOSED RESTING QUIETLY. RR EVEN AND UNLABORED. CALL LIGHT AND URINAL WITHIN REACH. FALL PRECAUTIONS IN PLACE. WILL CONTINUE TO MONITOR
--- NOTE | 2019-07-19 03:59 | NUR ---
PT LYING IN BED ON LEFT SIDE EYES CLOSED RESTING COMFORTABLY. RR EVEN AND UNLABORED. CALL LIGHT WITHIN REACH. FALL PRECAUTIONS IN PLACE. CPOC
--- NOTE | 2019-07-19 05:30 | NUR ---
BEDBATH AND LINEN CHANGE COMPLETE. CALMOSEPTINE APPLIED TO BUTTOCKS, SCROTUM, AND PENIS. PT DENIES ANY OTHER NEEDS OR PAIN. CALL LIGHT AND WATER WITHIN REACH. FALL PRECAUTIONS IN PLACE. CPOC
[2019-07-19 06:18] LABS: HEMATOCRIT 38.7 % (42.0-54.0); HEMOGLOBIN 11.9 g/dL (13.5-17.5); LYMPHOCYTES 21.5 % (15-50); MCH 27.2 pg (26.0-34.0); MCHC 30.7 g/dL (31.0-37.0); MCV 88.6 fL (80.0-100.0); MEAN PLATELET VOLUME 8.2 fL (7.4-10.4); PLATELET COUNT 517 10x3/uL (130-400); RBC 4.37 10x6/uL (4.20-6.10); RDW 14.8 % (11.5-14.5); WBC 11.9 10x3/uL (4.8-10.8)
[2019-07-19 06:27] LABS: CALC OSMOLALITY 268 mosm/kg (275-300); CALCIUM 9.3 mg/dL (8.5-10.1); CARBON DIOXIDE 25.3 mmol/L (21.0-32.0); CHLORIDE - SERUM 99 mmol/L (98-107); CREATININE - SERUM 0.7 mg/dL (0.6-1.3); GLUCOSE 156 mg/dL (74-106); POTASSIUM - SERUM 4.2 mmol/L (3.5-5.1); SODIUM 133 mmol/L (136-145); UREA NITROGEN 12 mg/dL (7-18); eGFR NON AFRICAN AMERICAN > 90 mL/min (90-120)
[2019-07-19 07:30] VITALS: BP 158/73
--- NOTE | 2019-07-19 07:30 | NUR ---
AWAKE,DENIES NEEDS AND PAIN.SPEECH DIFFICULT TO UNDERSTAND,GARBLED,SLURRED.ASSESSMENT COMPLETED. WILL CONTINUE WITH CURRENT PLAN OF CARE.CL IN EASY REACH,BED IN LOW POSITION.
--- NOTE | 2019-07-19 14:05 | NUR ---
Nutrition follow-up: Diet: ADA consistent CHO PO intake ~67% average of last 9 meals labs reviewed Wt: 182# PO intake has improved RDN following.
--- NOTE | 2019-07-19 15:00 | NUR ---
DRESSING CHANGE DONE PER CANDIE DÍAZRELIABILITY MANAGER NURSE.
--- NOTE | 2019-07-19 16:02 | NUR ---
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 RECOMMEND CONTINUING USING CALMOSEPTINE CREAM ON SCROTUM/PERINEAL AREA BUT NOT ON BUTTOCKS. APPLY MEPILEX SACRAL DRESSING TO COVER DISCOLORATION AND STAGE 2 PRESSURE INJURY - BUT NOT ON SKIN COVERED WITH MEPILEX. WOUND CARE WILL MONITOR.
--- NOTE | 2019-07-19 19:00 | NUR ---
BEDSIDE REPORT COMPLETE. PT LYING IN BED WATCHING TV. ALERT AND ORIENTED X3. DENIES ANY NEEDS OR PAIN. RR EVEN AND UNLABORED. CALL LIGHT AND WATER WITHIN REACH. FALL PRECAUTIONS IN PLACE. CPOC
[2019-07-19 20:50] VITALS: BP 148/58
--- NOTE | 2019-07-20 01:23 | NUR ---
PT LYING IN BED ON RIGHT SIDE EYES CLOSED RESTING COMFORTABLY. RR EVEN AND UNLABORED. CALL LIGHT AND WATER WITHIN REACH. FALL PRECAUTIONS IN PLACE. WILL CONTINUE TO MONITOR
--- NOTE | 2019-07-20 05:06 | NUR ---
PT LYING IN BED ON RIGHT SIDE EYES CLOSED RESTING. RR EVEN AND UNLABORED. CALL LIGHT WITHIN REACH. CPOC
--- NOTE | 2019-07-20 06:49 | NUR ---
PT LYING IN BED ON LEFT SIDE EYES CLOSED RESTING COMFORTABLY. RR EVEN AND UNLABORED. CALL LIGHT WITHIN REACH. FALL PRECAUTIONS IN PLACE. CPOC
--- NOTE | 2019-07-20 08:00 | NUR ---
PATIENT RESTING IN BED WITH EYES CLOSED, NO S/S OF DISTRESS NOTED, RESP EVEN AND UNLABORED, C/L AND FLUIDS IN REACH.
[2019-07-20 08:05] VITALS: BP 145/63
--- NOTE | 2019-07-20 10:35 | NUR ---
I have reviewed this patient and I concur with the Shift Assessment completed by the Licensed Practical Nurse today this shift.
--- NOTE | 2019-07-20 12:00 | NUR ---
PATIENT IN BED EATING LUNCH, DENIES ANY NEEDS AT THIS TIME, C/L AND FLUIDS IN REACH.
--- NOTE | 2019-07-20 18:53 | NUR ---
RESTING IN BED WATCHING TV, DENIES ANY NEEDS AT THIS TIME, C/L AND FLUIDS IN REACH.
--- NOTE | 2019-07-20 19:54 | NUR ---
AWAKE AND ALERT. RESTING IN BED WITH RESPIRATIONS UNLABORED. DRESSINGS INTACT TO BILATERAL AKAS. NO ACUTE DISTRESS NOTED. CALL LIGHT IN REACH.
[2019-07-20 21:18] VITALS: BP 131/55
--- NOTE | 2019-07-21 01:02 | NUR ---
RESTING IN BED WITH RESPIRAITONS UNLABORED. NO DISTRESS NOTED.
--- NOTE | 2019-07-21 04:36 | NUR ---
BED BATH GIVEN. NOTED COCCYX WOUND WORSENING. WOUND CARE CONSULT ORDERED FOR TREATMENT.
[2019-07-21 07:50] LABS: BASOPHILS 0.9 % (0-2); EOSINOPHILS 3.7 % (0-7); HEMATOCRIT 38.6 % (42.0-54.0); HEMOGLOBIN 12.1 g/dL (13.5-17.5); IMMATURE GRANULOCYTES 1.9 % (0-5); LYMPHOCYTES 17.5 % (15-50); MCHC 31.3 g/dL (31.0-37.0); MCV 89.4 fL (80.0-100.0); MEAN PLATELET VOLUME 8.2 fL (7.4-10.4); MONOCYTES 8.5 % (2-11); NEUTROPHILS 67.5 % (40-80); PLATELET COUNT 442 10x3/uL (130-400); RBC 4.32 10x6/uL (4.20-6.10); RDW 15.3 % (11.5-14.5); WBC 13.6 10x3/uL (4.8-10.8)
[2019-07-21 07:55] LABS: CALC OSMOLALITY 263 mosm/kg (275-300); CALCIUM 9.1 mg/dL (8.5-10.1); CARBON DIOXIDE 25.6 mmol/L (21.0-32.0); CHLORIDE - SERUM 99 mmol/L (98-107); CREATININE - SERUM 0.8 mg/dL (0.6-1.3); POTASSIUM - SERUM 4.4 mmol/L (3.5-5.1); SODIUM 131 mmol/L (136-145); UREA NITROGEN 12 mg/dL (7-18); eGFR NON AFRICAN AMERICAN > 90 mL/min (90-120)
[2019-07-21 07:56] LABS: GLUCOSE 108 mg/dL (74-106)
--- NOTE | 2019-07-21 08:00 | NUR ---
PATIENT IS ALERT/ORIENT. FIRST STEP MATTRESS ON BED. USING CALL LIGHT FOR NEEDS. WILL COTNINE WITH PLAN OF CARE
[2019-07-21 10:25] VITALS: BP 141/51
--- NOTE | 2019-07-21 10:27 | NUR ---
CALL INTO DR FORREST IN REGARDS TO SURBILLY [place] AKA.
--- NOTE | 2019-07-21 12:30 | NUR ---
I have reviewed this patient and I concur with the Shift Assessment completed by the Licensed Practical Nurse today this shift.
--- NOTE | 2019-07-21 13:53 | NUR ---
WOUND NURSE INTO SEE PATIENT. NEW ORDERS RECEIVED FOR PLUERO GEL AND MEPILEX DRESSING. CHANGE NEEDED
--- NOTE | 2019-07-21 14:11 | NUR ---
LEFT BUTTOCK WOUND HAS BECOME COVERED WITH NECROTIC TISSUE AND HAS SMALL OPENINGS 0.7CM IN DEPTH. RECOMMENDED USING PLUROGEL ON NECROTIC TISSUE (OR SANTYL-IF PLUROGEL ISN'T AVAILABLE). OTHER RECOMMENDATION IS KEEPING PT ON HIS RIGHT OR LEFT SIDE WHEN IN BED. HE COULD ALSO BENEFIT FROM A BROWN CATH OR [place] CATH TO STOP THE WOUND FROM STAYING WET. WOUND CARE CONTINUES TO MONITOR.
--- NOTE | 2019-07-21 15:18 | NUR ---
SUTURES REMOVED TO BILATERAL AKA. STERI-STRIPES APPLIED
--- NOTE | 2019-07-21 16:08 | NUR ---
CARE TEAM MEETING: HAS PHONE CONFERENCE WITH FAMILY. THEIR QUESTIONS AND CONCERNS WERE ADDRESSED. TENTIVE DISCHARGE DATE IS 07/23/19 AND WOULD LIKE [facility] FOR HOME [facility]. WILL CONTINUE TO FOLLOW WITH PATIENT.
--- NOTE | 2019-07-21 19:00 | NUR ---
BEDSIDE REPORT COMPLETE. PT LYING IN BED ON LEFT SIDE WATCHING TV. ALERT AND ORIENTED X3. DENIES ANY PAIN OR NEEDS. NO SIGNS OF ACUTE DISTRESS NOTED. BILATERAL AKA INCISIONS WITHOUT REDNESS OR SWELLING, SCABBED OVER, OPEN TO AIR. CALL LIGHT WITHIN REACH. FALL PRECAUTIONS IN PLACE. CPOC
[2019-07-21 19:59] VITALS: BP 144/51
--- NOTE | 2019-07-22 00:42 | NUR ---
PT LYING IN BED ON RIGHT SIDE EYES CLOSED RESTING. RR EVEN AND UNLABORED. CALL LIGHT WITHIN REACH. FALL PRECAUTIONS IN PLACE. WILL CONTINUE TO MONITOR
--- NOTE | 2019-07-22 05:20 | NUR ---
INCONTINENCE CARE PROVIDED. SMALL URINE INCONTINENCY. BED LINENS CHANGED. BUTTPASTE APPLIED TO SCROTUM. POSITIONED ON RIGHT SIDE. DENIES ANY OTHER NEEDS OR PAIN. RR EVEN AND UNLABORED. CALL LIGHT WITHIN REACH. FALL PRECAUTIONS IN PLACE. CPOC
[2019-07-22 07:36] VITALS: BP 134/60
--- NOTE | 2019-07-22 08:00 | NUR ---
PT RESTING IN BED WITH EYES OPEN CALL LIGHT IN REACH WILL MONITER
--- NOTE | 2019-07-22 17:55 | NUR ---
PT RESTING IN BED WITH EYES OPEN CALL LIGHT IN REACH WILL MONITER
--- NOTE | 2019-07-22 22:12 | NUR ---
PT IN BED WATCHING TV, NO NEEDS NOTED, FALL PRECAUTIONS IN PLACE, FLUIDS/CALL LIGHT WITHIN REACH
[2019-07-23 00:35] VITALS: BP 127/68
--- NOTE | 2019-07-23 07:19 | NUR ---
INTRODUCED SELF TO PATIENT AND PUT NAME ON BOARD, PATIENT RESTING IN BED WATCHING TV, DENIES ANY NEEDS AT THIST TIME, C/L AND FLUIDS IN REACH.
[2019-07-23 08:00] VITALS: BP 125/56
--- NOTE | 2019-07-23 08:15 | NUR ---
PATIENT RESTING IN BED WATCHING TV, ASSESSMENT COMPLETE, DENIES ANY NEEDS AT T HIS TIME, C/L AND FLUIDS IN REACH.
[2019-07-23 08:38] LABS: BASOPHILS 0.5 % (0-2); EOSINOPHILS 3.6 % (0-7); HEMATOCRIT 38.8 % (42.0-54.0); IMMATURE GRANULOCYTES 1.2 % (0-5); MCH 27.3 pg (26.0-34.0); MCHC 30.9 g/dL (31.0-37.0); MCV 88.2 fL (80.0-100.0); MEAN PLATELET VOLUME 8.2 fL (7.4-10.4); MONOCYTES 8.5 % (2-11); NEUTROPHILS 69.2 % (40-80); PLATELET COUNT 456 10x3/uL (130-400); WBC 12.9 10x3/uL (4.8-10.8)
[2019-07-23] MEDS ORDERED: oxyCODONE IR PO (08:44)
[2019-07-23 08:50] LABS: CALC OSMOLALITY 266 mosm/kg (275-300); CALCIUM 9.3 mg/dL (8.5-10.1); CARBON DIOXIDE 24.9 mmol/L (21.0-32.0); CHLORIDE - SERUM 98 mmol/L (98-107); CREATININE - SERUM 0.8 mg/dL (0.6-1.3); GLUCOSE 145 mg/dL (74-106); POTASSIUM - SERUM 4.5 mmol/L (3.5-5.1); SODIUM 132 mmol/L (136-145); UREA NITROGEN 9 mg/dL (7-18); eGFR NON AFRICAN AMERICAN > 90 mL/min (90-120)
--- NOTE | 2019-07-23 09:44 | NUR ---
PATIENT DISCHARGING HOME TODAY WITH FAMILY. [facility]E [facility] AT HOME. [facility] ASHUTOSH CEJA APN 07/26/19 @ 1:00, DR. FORREST 08/11/19 @ 9:20. GARRY SIGNED AND IMM SERVED AND EXPLAINED. DISCHARGE INSTRUCTIONS FAXED TO PCP, HOME HEALTH AND REVIEWED WITH PATIENT PER PRIMARY NURSE.
--- NOTE | 2019-07-23 12:00 | NUR ---
PATIENT RESTING IN BED WATCHING TV, DENIES ANY NEEDS AT THIS TIME, C/L AND FLUIDS IN REACH.
--- NOTE | 2019-07-23 14:21 | NUR ---
PATIENT UP IN W/C DISCHARGING TO HOME WITH FAMILY, REVIEWED MEDICATIONS AND FOLLOW-UP APPOINTMENTS WITH DAUGHTER AND PATIENT.
== END 2019-07-23 14:30 | disposition home health service (06) | DRG 299 ==
LOC: D.REHAB 19:32
PROVIDERS: ADMIT Emergency Medicine; ATTEND Emergency Medicine
DX: E11.52 Type 2 diabetes mellitus with diabetic peripheral angiopathy with gangrene (principal); I50.31 Acute diastolic (congestive) heart failure; I50.33 Acute on chronic diastolic (congestive) heart failure; I70.269 Atherosclerosis of native arteries of extremities with gangrene, unspecified extremity; E87.1 Hypo-osmolality and hyponatremia; J43.9 Emphysema, unspecified; D64.9 Anemia, unspecified; E78.5 Hyperlipidemia, unspecified; K21.9 Gastro-esophageal reflux disease without esophagitis; I10 Essential (primary) hypertension; I69.328 Other speech and language deficits following cerebral infarction; Z89.612 Acquired absence of left leg above knee; Z89.611 Acquired absence of right leg above knee; I73.9 Peripheral vascular disease, unspecified